=== PATIENT | female | born 1945 | race Two or more races ===

== ENCOUNTER 2016-03-23 16:51 | Emergency (ER) | payer MEDICARE, OTHER ==
[~2016-03-23] VITALS: Ht 157.5 cm; Wt 56.7 kg
[~2016-03-23 16:51] MED LIST: LISI-275 PO; PANT40TA2 PO; PERCOT PO
[2016-03-23 18:49] LABS: Albumin 3.3 g/dL (3.4-5.0); Calcium 8.1 mg/dL (8.5-10.1); Magnesium 2.1 mg/dL (1.6-2.6); Potassium 3.9 mmol/L (3.5-5.1)
[2016-03-23 18:51] LABS: BUN/Creatinine Ratio 15.9
[2016-03-23 18:54] LABS: Bilirubin, Total 0.3 mg/dL (0.2-1.0); Total Protein 7.2 g/dL (6.4-8.2)
[2016-03-23 19:29] LABS: DEFINITIVE VIEW TRANSMISSION; Hematocrit 40.5 % (36.0-46.0); Hemoglobin 12.8 g/dL (12.2-16.2); Mean Corpuscular Hemoglobin 28.7 pg (28.0-32.0); Mean Corpuscular Hgb Conc. 31.8 g/dL (32.0-36.0); Mean Corpuscular Volume 90.4 fL (80.0-100.0); Mean Platelet Volume 6.8 fL (7.4-10.4); Platelet Count (auto) 385 10^3/uL (140-450); Red Cell Distribution Width 16.1 % (11.6-16.0); White Blood Cell 6.3 10^3/uL (4.4-10.8)
[2016-03-23 19:32] LABS: Metamyelocytes % 0; Myelocytes % 0; Promyelocytes % 0; Reactive Lymphocytes 0
[2016-03-23 23:32] LABS: Platelet Estimate Adequate; RBC Morphology Normal
[2016-03-24] MEDS ORDERED: HYDROcodone-ACET 5/325MG TAB PO ONE (03:15)
[2016-03-24 03:45] VITALS: BP 147/68
== END 2016-03-24 04:31 | disposition home or self-care (01) ==
LOC: EDUNIT# 16:51 → ER 16:59
DX: R41.82 Altered mental status, unspecified (principal); R45.1 Restlessness and agitation; F17.210 Nicotine dependence, cigarettes, uncomplicated; G30.9 Alzheimer's disease, unspecified; F02.80 Dementia in other diseases classified elsewhere, unspecified severity, without behavioral disturbance, psychotic disturbance, mood disturbance, and anxiety; I10 Essential (primary) hypertension
CPT/HCPCS: 36415; 70450; 80053; 82962; 83735; 84484; 85007; 85027; 93005

== ENCOUNTER 2016-04-06 03:48 | Emergency (ER) | payer OTHER ==
[~2016-04-06] VITALS: Ht 162.6 cm; Wt 60.8 kg
[2016-04-06 04:56] LABS: Basophils # (auto) 0.1 uL; Basophils % (auto) 1.3 % (0.0-2.0); DEFINITIVE VIEW TRANSMISSION; Eosinophils # (auto) 0.7 uL; Eosinophils % (auto) 10.7 % (0.0-7.0); Hematocrit 41.9 % (36.0-46.0); Hemoglobin 13.1 g/dL (12.2-16.2); Lymphocytes # (auto) 2.1 uL; Lymphocytes % (auto) 30.4 % (10.0-50.0); Mean Corpuscular Hemoglobin 28.5 pg (28.0-32.0); Mean Corpuscular Hgb Conc. 31.2 g/dL (32.0-36.0); Mean Corpuscular Volume 91.4 fL (80.0-100.0); Monocytes # (auto) 0.6 uL; Monocytes % (auto) 9.2 % (0.0-12.0); Neutrophils # (auto) 3.3 uL; Neutrophils % (auto) 48.4 % (37.0-80.0); Platelet Count (auto) 423 10^3/uL (140-450); Red Cell Distribution Width 15.9 % (11.6-16.0); White Blood Cell 6.9 10^3/uL (4.4-10.8)
[2016-04-06 05:17] LABS: Albumin 3.6 g/dL (3.4-5.0); BUN/Creatinine Ratio 15.8; Calcium 8.2 mg/dL (8.5-10.1); Magnesium 2.2 mg/dL (1.6-2.6); Potassium 3.5 mmol/L (3.5-5.1)
[2016-04-06 05:20] LABS: Bilirubin, Total 0.3 mg/dL (0.2-1.0); Total Protein 7.8 g/dL (6.4-8.2)
[2016-04-06 06:10] VITALS: BP 120/60
[2016-04-06] MEDS ORDERED: KETOROLAC TROMETH 30 MG/ML 1ML VIAL IV ONE (07:30)
[2016-04-06] MEDS ORDERED: METOCLOPRAMIDE HCL 5MG/ml INJ 2ml VIAL IV ONE (07:30)
== END 2016-04-06 10:14 | disposition home or self-care (01) ==
LOC: ER 03:50
DX: R07.89 Other chest pain (principal); F03.90 Unspecified dementia, unspecified severity, without behavioral disturbance, psychotic disturbance, mood disturbance, and anxiety; F41.9 Anxiety disorder, unspecified; I10 Essential (primary) hypertension; G30.9 Alzheimer's disease, unspecified; G35 Multiple sclerosis; F17.210 Nicotine dependence, cigarettes, uncomplicated
CPT/HCPCS: 36415; 71010; 80053; 83735; 84443; 84484; 85025; 93005; 94761; 96374; 96375; 99285; J1885; J2765

== ENCOUNTER 2018-01-05 20:04 | Emergency (ER) | payer OTHER ==
[~2018-01-05] VITALS: Ht 160 cm; Wt 65.8 kg
[2018-01-05] MEDS ORDERED: LORazepam 0.5 MG TAB PO ONE (21:00)
[2018-01-05] MEDS ORDERED: KETOROLAC TROMETH 30 MG/ML 1ML VIAL IV ONE (21:00)
[2018-01-05 22:26] VITALS: BP 122/88
[2018-01-05 23:26] LABS: Basophils # (auto) 0.1 uL; Basophils % (auto) 0.5 % (0.0-2.0); Eosinophils # (auto) 0.3 uL; Eosinophils % (auto) 3.2 % (0.0-7.0); Hematocrit 49.9 % (36.0-46.0); Hemoglobin 16.1 g/dL (12.2-16.2); Lymphocytes # (auto) 1.3 uL; Lymphocytes % (auto) 11.9 % (10.0-50.0); Mean Corpuscular Hgb Conc. 32.2 g/dL (32.0-36.0); Mean Corpuscular Volume 93.1 fL (80.0-100.0); Monocytes # (auto) 0.4 uL; Monocytes % (auto) 4.1 % (0.0-12.0); Neutrophils # (auto) 8.7 uL; Neutrophils % (auto) 80.3 % (37.0-80.0); Platelet Count (auto) 323 10^3/uL (140-450); Red Blood Cells 5.36 10^6/uL (4.0-5.20); Red Cell Distribution Width 15.6 % (11.8-14.3); White Blood Cell 10.8 10^3/uL (4.4-10.8)
[2018-01-05 23:34] LABS: Urine Bacteria NONE SEEN /hpf (None Seen); Urine Blood Negative /uL (Negative); Urine Specific Gravity 1.015 (1.001-1.035); Urine WBC <1 /hpf (0 - 5)
[2018-01-05 23:45] LABS: Albumin 3.9 g/dL (3.4-5.0); Calcium 8.6 mg/dL (8.5-10.1); Potassium 4.6 mmol/L (3.5-5.1)
[2018-01-05 23:48] LABS: BUN/Creatinine Ratio 15.4; Bilirubin, Total 0.3 mg/dL (0.2-1.0); Total Protein 8.9 g/dL (6.4-8.2)
== END 2018-01-06 00:24 | disposition home or self-care (01) ==
LOC: EDBD 20:04 → ER 20:10
DX: S32.019A Unspecified fracture of first lumbar vertebra, initial encounter for closed fracture (principal); I10 Essential (primary) hypertension; G30.9 Alzheimer's disease, unspecified; F02.80 Dementia in other diseases classified elsewhere, unspecified severity, without behavioral disturbance, psychotic disturbance, mood disturbance, and anxiety; F41.9 Anxiety disorder, unspecified; F17.210 Nicotine dependence, cigarettes, uncomplicated; X58.XXXA Exposure to other specified factors, initial encounter; Y93.89 Activity, other specified; Y99.8 Other external cause status; Y92.89 Other specified places as the place of occurrence of the external cause
CPT/HCPCS: 36415; 72100; 80053; 81001; 85025; 96374; 99285; J1885

== ENCOUNTER 2018-03-16 18:34 | Emergency (ER) | payer OTHER ==
[2018-03-16 19:22] LABS: Basophils # (auto) 0.2 uL; Basophils % (auto) 2.2 % (0.0-2.0); Eosinophils # (auto) 0.7 uL; Eosinophils % (auto) 9.9 % (0.0-7.0); Hematocrit 45.5 % (36.0-46.0); Lymphocytes # (auto) 1.8 uL; Lymphocytes % (auto) 24.8 % (10.0-50.0); Mean Corpuscular Hemoglobin 30.1 pg (28.0-32.0); Mean Corpuscular Hgb Conc. 32.9 g/dL (32.0-36.0); Mean Corpuscular Volume 91.5 fL (80.0-100.0); Monocytes # (auto) 0.9 uL; Monocytes % (auto) 12.1 % (0.0-12.0); Neutrophils # (auto) 3.6 uL; Nucleated Red Blood Cells % 0.1 %; Platelet Count (auto) 316 10^3/uL (140-450); Red Blood Cells 4.98 10^6/uL (4.0-5.20); Red Cell Distribution Width 14.6 % (11.8-14.3); White Blood Cell 7.1 10^3/uL (4.4-10.8)
[2018-03-16 19:34] LABS: Albumin 3.7 g/dL (3.4-5.0); Anion Gap 6 (5-15); Blood Urea Nitrogen 17 mg/dL (7-18); Calcium 8.2 mg/dL (8.5-10.1); Carbon Dioxide 23 mmol/L (21-32); Chloride 113 mmol/L (98-107); Glucose 119 mg/dL (74-106); Potassium 4.3 mmol/L (3.5-5.1); Sodium 142 mmol/L (136-145)
[2018-03-16 19:41] LABS: Alanine Aminotransferase 27 U/L (13-56); Alkaline Phosphatase 151 U/L (45-117); Aspartate Aminotransferase 32 U/L (15-37); BUN/Creatinine Ratio 13.9; Bilirubin, Total 0.3 mg/dL (0.2-1.0); GFR African American 55 mL/min; GFR Non-African American 46 mL/min; Total Protein 8.5 g/dL (6.4-8.2)
[2018-03-16 23:48] VITALS: BP 139/62
[2018-03-20] MEDS ORDERED: SERT-138 PO (02:38)
[2018-03-20] MEDS ORDERED: BISA-4 PO (02:38)
[2018-03-20] MEDS ORDERED: LISI-646 PO (02:38)
[2018-03-20] MEDS ORDERED: ASPI81CH4 PO (02:38)
[2018-03-20] MEDS ORDERED: DONE10TA17 PO (02:38)
[2018-03-20] MEDS ORDERED: AMLO5TAB13 PO (02:38)
[2018-03-20] MEDS ORDERED: QUET50TA PO ×2 (02:38)
[2018-03-20] MEDS ORDERED: DIAZ2TAB PO (02:38)
== END 2018-03-16 22:24 | disposition home or self-care (01) ==
LOC: ER 18:34
DX: F41.8 Other specified anxiety disorders (principal); I11.0 Hypertensive heart disease with heart failure; I50.9 Heart failure, unspecified; J44.9 Chronic obstructive pulmonary disease, unspecified; Z87.891 Personal history of nicotine dependence
CPT/HCPCS: 36415; 71046; 80053; 84484; 85025; 93005

== ENCOUNTER 2019-01-16 11:13 | Inpatient (IN) | payer OTHER ==
[~2019-01-16] VITALS: Ht 167.6 cm; Wt 34.0 kg
[~2019-01-16 11:13] MED LIST changes: +AMLO5TAB15 PO; +ASPI81CH4 PO; +BISA-4 PO; +DIAZ2TAB PO; -LISI-275 PO; +LISI-646 PO; -PERCOT PO; +QUET50TA PO; +SERT50TA PO
[2019-01-16 12:14] LABS: Hematocrit 54.1 % (36.0-46.0); Red Cell Distribution Width 17.7 % (11.8-14.3)
[2019-01-16 12:16] LABS: Hemoglobin 17.3 g/dL (12.2-16.2); Mean Corpuscular Hemoglobin 31.6 pg (28.0-32.0); Mean Corpuscular Volume 98.7 fL (80.0-100.0); Platelet Count (auto) 89 10^3/uL (140-450); Red Blood Cells 5.48 10^6/uL (4.0-5.20)
[2019-01-16 12:25] LABS: Basophils % (manual) 0 (0.0-2.0); Blast Cells 0; Eosinophils % (manual) 0 (0-7); Metamyelocytes % 0; Myelocytes % 0; Promyelocytes % 0; Reactive Lymphocytes 0
[2019-01-16] MEDS ORDERED: SODIUM CHLORIDE 0.9% 1,000 ML IVB ONE (12:52)
[2019-01-16 12:54] LABS: Band Neutrophils % (manual) 18; Lymphocytes % (manual) 16 (10.0-50.0); Monocytes % (manual) 5 (0-12)
[2019-01-16] MEDS ORDERED: cefTRIAXone 1GM/50ML D5W 50 ML IV ONE (13:00)
[2019-01-16 13:46] LABS: INR 1.23 (0.9-1.15); Partial Thromboplastin Time 28.7 sec (23.64-32.05)
[2019-01-16 14:03] LABS: Alanine Aminotransferase 14 U/L (13-56); Albumin 2.6 g/dL (3.4-5.0); Anion Gap 9 (5-15); Aspartate Aminotransferase 33 U/L (15-37); BUN/Creatinine Ratio 15.2; Blood Alcohol < 3.0 mg/dL (0-5); Calcium 7.6 mg/dL (8.5-10.1); Carbon Dioxide 16 mmol/L (21-32); Chloride 142 mmol/L (98-107); GFR African American 6 mL/min; GFR Non-African American 5 mL/min; Glucose 109 mg/dL (74-106)
[2019-01-16 14:05] LABS: Blood Urea Nitrogen 134 mg/dL (7-18); Potassium 7.6 mmol/L (3.5-5.1); Sodium 167 mmol/L (136-145)
[2019-01-16 14:10] LABS: Alkaline Phosphatase 93 U/L (45-117); Bilirubin, Total 0.6 mg/dL (0.2-1.0); Total Protein 8.2 g/dL (6.4-8.2)
[2019-01-16] MEDS ORDERED: DEXTROSE (50%) 50ML SYRG IV ONE ×2 (14:30→19:30)
[2019-01-16] MEDS ORDERED: SODIUM BICARBONATE 8.4% INJ 50ML SYRINGE IV ONE (14:30)
[2019-01-16] MEDS ORDERED: InsuLIN REG 1unit/0.01ml Soln (100units/ml) IV ONE ×2 (14:30→19:30)
[2019-01-16] MEDS ORDERED: CALCIUM CHL 100MG/ML 500 MG in D5W 5% 100 ML IV ONE (14:30)
[2019-01-16] MEDS ORDERED: D5W 5% 1,000 ML IV SCH (14:45)
[2019-01-16] MEDS ORDERED: ALBUTEROL SULF 2.5 MG/0.5ML(0.5%) NEB SOLN NEB ONE ×2 (14:45→19:30)
[2019-01-16] MEDS ORDERED: NITROGLYCERIN 0.4 MG SL TAB SL PRN (14:45)
[2019-01-16 15:21] LABS: Lactic Acid w/Reflex 2.4 mmol/L (0.4-2.0)
[2019-01-16] MEDS ORDERED: SODIUM CHLORIDE 0.9% 2,000 ML IV ONE (16:15)
[2019-01-16] MEDS ORDERED: LIDOCAINE 1% (LOCAL ANESTH.) PF 5ml SDV ID ONE (16:30)
[2019-01-16] MEDS: InsuLIN REG 1unit/0.01ml Soln (100units/ml) SC SCH ×2 (17:00→22:00)
[2019-01-16] MEDS: ACCU-CHEK COMFORT CURVE STRIP VI SCH ×2 (17:26→22:00)
[2019-01-16] MEDS ORDERED: FREE WATER GT SCH (18:00)
[2019-01-16 18:33] LABS: Urine Bacteria NONE SEEN /hpf (None Seen); Urine Blood 2+ /uL (Negative); Urine Specific Gravity 1.016 (1.001-1.035); Urine WBC 20 /hpf (0 - 5)
[2019-01-16 18:34] LABS: BUN/Creatinine Ratio 16.7; Calcium 7.8 mg/dL (8.5-10.1); Magnesium 3.9 mg/dL (1.6-2.6); Potassium 5.3 mmol/L (3.5-5.1)
[2019-01-16] MEDS: SOD CHL 0.45% 1,000 ML IV SCH (21:42)
[2019-01-16] MEDS: FREE WATER GT SCH ×2 (21:43→22:00)
[2019-01-16] MEDS: SODIUM CHLOR 0.9% PF (SALINE LOCK) 10ML VIAL/SYR IV SCH (22:00)
[2019-01-17] MEDS: FREE WATER GT SCH ×6 (02:20→22:03)
[2019-01-17] MEDS: FAMOTIDINE (10MG/ML) 2ML VL IV SCH ×2 (02:20→09:35)
[2019-01-17 05:24] LABS: Basophils # (auto) 0.2 uL; Basophils % (auto) 2.7 % (0.0-2.0); Eosinophils # (auto) 0.1 uL; Eosinophils % (auto) 1.2 % (0.0-7.0); Hematocrit 44.7 % (36.0-46.0); Hemoglobin 14.9 g/dL (12.2-16.2); Lymphocytes # (auto) 0.6 uL; Mean Corpuscular Hemoglobin 32.2 pg (28.0-32.0); Mean Corpuscular Hgb Conc. 33.4 g/dL (32.0-36.0); Mean Corpuscular Volume 96.2 fL (80.0-100.0); Monocytes # (auto) 0.7 uL; Neutrophils # (auto) 7.4 uL; Neutrophils % (auto) 81.1 % (37.0-80.0); Nucleated Red Blood Cells % 0.3 %; Platelet Count (auto) 66 10^3/uL (140-450); Red Blood Cells 4.64 10^6/uL (4.0-5.20); Red Cell Distribution Width 16.8 % (11.8-14.3); White Blood Cell 9.2 10^3/uL (4.4-10.8)
[2019-01-17] MEDS: SOD CHL 0.45% 1,000 ML IV SCH (05:30)
[2019-01-17 05:45] LABS: Calcium 6.9 mg/dL (8.5-10.1); Potassium 5.3 mmol/L (3.5-5.1)
[2019-01-17 05:49] LABS: BUN/Creatinine Ratio 18.9
[2019-01-17] MEDS: InsuLIN REG 1unit/0.01ml Soln (100units/ml) SC SCH ×4 (07:00→22:00)
[2019-01-17] MEDS: ACCU-CHEK COMFORT CURVE STRIP VI SCH ×4 (07:27→22:03)
[2019-01-17] MEDS: SODIUM CHLOR 0.9% PF (SALINE LOCK) 10ML VIAL/SYR IV SCH ×2 (09:35→21:59)
[2019-01-17] MEDS ORDERED: DEXTROSE (50%) 50ML SYRG IV ONE (12:15)
[2019-01-17] MEDS: D5W/SOD CHL 0.45% 1,000 ML IV SCH (15:34)
[2019-01-17] MEDS ORDERED: LORazepam 2MG/ML-1ML VIAL IV ONE (17:45)
[2019-01-17] MEDS: SODIUM BICARBONATE 650 MG TAB PO SCH (21:59)
[2019-01-17] MEDS: ACETAMINOPHEN 650 mg PER 20 mL UD GT PRN (22:02)
[2019-01-18] MEDS: D5W/SOD CHL 0.45% 1,000 ML IV SCH ×3 (01:30→20:49)
[2019-01-18] MEDS: FREE WATER GT SCH ×6 (01:31→21:41)
[2019-01-18] MEDS ORDERED: LORazepam 2MG/ML-1ML VIAL IV ONE ×2 (05:45→19:45)
[2019-01-18 06:58] LABS: Basophils # (auto) 0 uL; Basophils % (auto) 0.5 % (0.0-2.0); Hemoglobin 13.1 g/dL (12.2-16.2); Lymphocytes # (auto) 1.4 uL; Lymphocytes % (auto) 15.8 % (10.0-50.0); Monocytes # (auto) 1.1 uL; Monocytes % (auto) 12.2 % (0.0-12.0); White Blood Cell 9.1 10^3/uL (4.4-10.8)
[2019-01-18 07:00] LABS: Eosinophils # (auto) 0.4 uL; Hematocrit 40.4 % (36.0-46.0); Mean Corpuscular Hemoglobin 32.4 pg (28.0-32.0); Mean Corpuscular Hgb Conc. 32.5 g/dL (32.0-36.0); Mean Corpuscular Volume 99.7 fL (80.0-100.0); Neutrophils # (auto) 6.1 uL; Neutrophils % (auto) 67.5 % (37.0-80.0); Nucleated Red Blood Cells % 0.2 %; Platelet Count (auto) 50 10^3/uL (140-450); Red Blood Cells 4.05 10^6/uL (4.0-5.20); Red Cell Distribution Width 16.9 % (11.8-14.3)
[2019-01-18] MEDS: InsuLIN REG 1unit/0.01ml Soln (100units/ml) SC SCH ×4 (07:00→21:34)
[2019-01-18] MEDS: ACCU-CHEK COMFORT CURVE STRIP VI SCH ×4 (07:05→21:34)
[2019-01-18 07:17] LABS: BUN/Creatinine Ratio 21.9; Calcium 6.3 mg/dL (8.5-10.1); Potassium 4.1 mmol/L (3.5-5.1)
--- NOTE | 2019-01-18 09:30 | NUR ---
WOUND CARE NOTE: ADDED PATIENT TO SKIN INTEGRITY MONITORING D/T PATIENT'S LOW RACHEL SCORE OF 12. PATIENT IS ICU STATUS IN ER BED 5, AWAITING AVAILABLE BED IN THE ICU. PATIENT ADMITTED TO [facility] WITH DIAGNOSIS OF HYPERKALEMIA. SHE DEVELOPED ERYTHEMA, EDEMA, ECCHYMOSIS TO THE LEFT FOREARM, FROM A POSSIBLE IV INFILTRATION. PATIENT SHOULD ELEVATE LUE UP ONTO PILLOWS TO HELP WITH EDEMA CONTROL. BEDSIDE NURSE PHOTOGRAPHED WOUND FOR REFERENCE. NO OTHER SKIN INTEGRITY ISSUES NOTED. PATIENT WOULD BENEFIT FROM THE FOLLOWING: SKIN/WOUND CARE PLAN, FREQUENT TURN SCHEDULE Q 2 HOURS, PRN CONDITION PERMITS, WITH PRESSURE REDISTRIBUTION USING PILLOWS/WEDGES, BID APPLICATION WITH MOISTURE BARRIER CREAM, OPTIFOAM GENTLE SACRAL DRESSING PREVENTATIVE, ELEVATION OF LUE WITH PILLOWS AND CLOSE MONITORING OF ERYTHEMA, DIETARY CONSULT FOR LOW RACHEL, CONTINUED MONITORING BY WOUND CARE TEAM. Addendum: 01/18/19 at 1426 by Saige Moore RN Amended: Links added.
[2019-01-18] MEDS: SODIUM CHLOR 0.9% PF (SALINE LOCK) 10ML VIAL/SYR IV SCH ×2 (10:47→21:34)
[2019-01-18] MEDS: SODIUM BICARBONATE 650 MG TAB PO SCH ×2 (10:50→21:41)
[2019-01-18] MEDS: FAMOTIDINE (10MG/ML) 2ML VL IV SCH (10:50)
[2019-01-18] MEDS: LORazepam 2MG/ML-1ML VIAL IV PRN ×2 (15:24→23:26)
[2019-01-18] MEDS: DEXTROSE (50%) 50ML SYRG IV PRN ×2 (17:18→21:32)
[2019-01-19] MEDS: MORPHINE SULF INJ 2 MG/ML SYRINGE 1ML IV PRN ×2 (00:55→01:29)
[2019-01-19] MEDS: FREE WATER GT SCH ×6 (01:42→22:36)
[2019-01-19] MEDS: DEXTROSE (50%) 50ML SYRG IV PRN (05:41)
[2019-01-19] MEDS ORDERED: DEXTROSE 10% 1,000 ML IV ONE ×2 (06:00→14:49)
[2019-01-19] MEDS: D5W/SOD CHL 0.45% 1,000 ML IV SCH ×2 (06:07→15:13)
[2019-01-19] MEDS: ACCU-CHEK COMFORT CURVE STRIP VI SCH ×4 (07:20→22:37)
[2019-01-19] MEDS: InsuLIN REG 1unit/0.01ml Soln (100units/ml) SC SCH ×4 (07:20→22:00)
[2019-01-19] MEDS ORDERED: DEXTROSE 10% 500 ML IV ONE (07:25)
[2019-01-19 07:37] LABS: Basophils # (auto) 0.1 uL; Basophils % (auto) 0.8 % (0.0-2.0); Eosinophils # (auto) 0.4 uL; Eosinophils % (auto) 4.5 % (0.0-7.0); Hematocrit 42.8 % (36.0-46.0); Hemoglobin 14.4 g/dL (12.2-16.2); Lymphocytes # (auto) 2.3 uL; Lymphocytes % (auto) 27.4 % (10.0-50.0); Mean Corpuscular Hemoglobin 32.3 pg (28.0-32.0); Mean Corpuscular Hgb Conc. 33.6 g/dL (32.0-36.0); Mean Corpuscular Volume 96.3 fL (80.0-100.0); Monocytes % (auto) 12.4 % (0.0-12.0); Neutrophils # (auto) 4.6 uL; Neutrophils % (auto) 54.9 % (37.0-80.0); Nucleated Red Blood Cells % 0.4 %; Platelet Count (auto) 69 10^3/uL (140-450); Red Blood Cells 4.45 10^6/uL (4.0-5.20); Red Cell Distribution Width 16.4 % (11.8-14.3); White Blood Cell 8.3 10^3/uL (4.4-10.8)
[2019-01-19 08:00] LABS: Calcium 6.5 mg/dL (8.5-10.1); Potassium 4.4 mmol/L (3.5-5.1)
[2019-01-19 08:02] LABS: Lactic Acid w/Reflex 2.3 mmol/L (0.4-2.0)
[2019-01-19] MEDS: SODIUM CHLOR 0.9% PF (SALINE LOCK) 10ML VIAL/SYR IV SCH ×2 (09:45→22:36)
[2019-01-19] MEDS ORDERED: CATHFLO ACTIVASE (ALTEPLASE) 2 MG VIAL IV ONE (09:45)
[2019-01-19] MEDS: SODIUM BICARBONATE 650 MG TAB PO SCH ×2 (10:07→22:36)
[2019-01-19] MEDS: FAMOTIDINE (10MG/ML) 2ML VL IV SCH (10:08)
[2019-01-19] MEDS ORDERED: AZITHROMYCIN 500MG/ 250ML 250 ML IV ONE (11:15)
[2019-01-19] MEDS ORDERED: cefTRIAXone 1GM/50ML D5W 50 ML IV ONE (11:15)
[2019-01-19] MEDS: Jevity 1.2 Cal/Fiber 1 Liter GT SCH (12:00)
[2019-01-19] MEDS: LORazepam 2MG/ML-1ML VIAL IV PRN ×2 (12:15→21:00)
--- NOTE | 2019-01-19 13:47 | NUR ---
Nutrition Assessment/consult Notes please see attached link for complete assessment Est. Needs BW 56 [id number] kcal (25-30kcal/kgBW), 44-56 gms pro (0.8-1.0 gms/kgBW r/t elev RFT wounds). Will continue to monitor pertinent labs and reassess nutrient need prn Addendum: 01/19/19 at [address] Amended: Links added.
--- NOTE | 2019-01-19 17:10 | NUR ---
Admit to [facility] from [facility] admitted to [facility] via hospital bed on monitor technician, and portable 02. Patient connected to unit monitoring and oxygen, and weighed by bedscale. Patient oriented to CL FALCON, RN primary RN, unit, room, bed, and unit policies regarding patient care and visiting hours. Patient still confused, non verbal, moving around, not follow direction, pupil Right eye 2 mm Reac to light, left eye 3 mm reac to light. On Grullon's catheter, urine drain to bag, urine with yellow color and pink color, skin assessment done: possible IV infiltration at left forearm, bruises at right thigh, black color at sacrum area. NG tube at left Nares running tube feeding at 20 ml/hr, PICC line at right upper arm running D10 at 75 ml/hr. Plan of care discussed with Aiyana (daughter).
[2019-01-19 17:11] VITALS: BP 100/60
[2019-01-19 17:15] VITALS: BP 100/60
--- NOTE | 2019-01-19 18:10 | NUR ---
Ruth (daughter) POA for medical and financial for patient, Aiyana (daughter) told that they are thinking about Code status : DNR, will discuss again when Ruth at the bedside.
--- NOTE | 2019-01-19 18:50 | NUR ---
Aiyana (daughter) at the bedside. Patient able to rest a little bit then make moving, still keep HOB for prevent aspiration. Will continue to monitor and care.
[2019-01-19 20:00] VITALS: BP 101/73
--- NOTE | 2019-01-19 20:00 | NUR ---
SHIFT OPENING NOTE RECEIVED PATIENT LAYING IN BED WITH EYES CLOSED. DOES NOT OPEN EYES, TRACK OR RESPONDS TO QUESTIONS. NONVERBAL. OCCASIONALLY MOANS. ON 2L N/C POX 100% RECEIVING TUBE FEEDINGS VIA NG TUBE LEFT NARE INFUSING JEVITY AT 20 ML/H (GOAL IS 50 ML/). AGUIRRE CATH IN PLACE DRAINING YELLOW URINE WITH SEDIMENT TO GRAVITY. KEM PICC INFUSING D10 AT 75ML/H ONE TIME DOSE. DAUGHTER AT BEDSIDE EDUCATED ON PATIENTS STATUS AND POC. WILL CLOSELY MONITOR. PATIENT.
[2019-01-19] MEDS: ACETAMINOPHEN 650 mg PER 20 mL UD GT PRN (21:00)
[2019-01-20] VITALS: BP 138/112
--- NOTE | 2019-01-20 00:30 | NUR ---
MORNING HYGIENE CARE FULL BED BATH PERFORMED WITH CHG WIPES AND WARM SOAPY WASH CLOTHES. GOWN CHANGED. FULL LINEN CHANGED. PATIENT REPOSITIONED FOR COMFORT. TOLERATED IT WELL.
[2019-01-20] MEDS: FREE WATER GT SCH ×5 (02:00→21:46)
[2019-01-20] MEDS ORDERED: LORA-655 PO (02:21)
[2019-01-20] MEDS ORDERED: DIVA500T53 PO (02:21)
[2019-01-20] MEDS ORDERED: DONE10TA40 PO (02:21)
[2019-01-20 04:00] VITALS: BP 109/50
[2019-01-20] MEDS: D5W/SOD CHL 0.45% 1,000 ML IV SCH (04:38)
[2019-01-20 05:37] LABS: Hemoglobin 12.5 g/dL (12.2-16.2); Mean Corpuscular Hemoglobin 32.6 pg (28.0-32.0); Mean Corpuscular Hgb Conc. 33.7 g/dL (32.0-36.0); Mean Corpuscular Volume 96.6 fL (80.0-100.0); Platelet Count (auto) 66 10^3/uL (140-450); Red Blood Cells 3.83 10^6/uL (4.0-5.20); Red Cell Distribution Width 15.5 % (11.8-14.3); White Blood Cell 10.2 10^3/uL (4.4-10.8)
[2019-01-20 05:50] LABS: Basophils % (manual) 0 (0.0-2.0); Blast Cells 0; Metamyelocytes % 0; Myelocytes % 0; Promyelocytes % 0; Reactive Lymphocytes 0
[2019-01-20 05:52] LABS: BUN/Creatinine Ratio 15.6; Potassium 3.6 mmol/L (3.5-5.1)
[2019-01-20] MEDS: ACCU-CHEK COMFORT CURVE STRIP VI SCH ×4 (06:07→21:48)
[2019-01-20] MEDS: InsuLIN REG 1unit/0.01ml Soln (100units/ml) SC SCH ×4 (06:07→21:48)
[2019-01-20 06:37] LABS: Band Neutrophils % (manual) 5; Eosinophils % (manual) 3 (0-7); Lymphocytes % (manual) 17 (10.0-50.0); Monocytes % (manual) 12 (0-12)
--- NOTE | 2019-01-20 07:50 | NUR ---
Opening Shift Note Assumed care of patient, patient sleeping, woke up by touching her arm but only moaning, not open her eyes, moving all extremities and not follow direction. No S/S of distress/SOB or pain, will continue to monitor for changes Q1hr and PRN.
[2019-01-20 08:00] VITALS: BP 114/81
--- NOTE | 2019-01-20 08:10 | NUR ---
Dr. Santacruz at the bedside, seen patient at this time, received new orders, will carry out.
--- NOTE | 2019-01-20 09:10 | NUR ---
Re position, keep high carrion position, NG tube checking no content noted, free water given as order. Increased TF to 40 ml/hr, will continue to monitor and care.
[2019-01-20] MEDS: cefTRIAXone 1GM/50ML D5W 50 ML IV SCH (09:18)
[2019-01-20] MEDS: SODIUM CHLOR 0.9% PF (SALINE LOCK) 10ML VIAL/SYR IV SCH ×2 (09:19→21:46)
[2019-01-20] MEDS: FAMOTIDINE (10MG/ML) 2ML VL IV SCH (09:19)
[2019-01-20] MEDS: AZITHROMYCIN 500MG/ 250ML 250 ML IV SCH (09:20)
[2019-01-20] MEDS: SODIUM BICARBONATE 650 MG TAB PO SCH ×2 (09:20→21:47)
--- NOTE | 2019-01-20 10:29 | NUR ---
Received new orders, will carry out, D/C IV as order, decreased free water.
[2019-01-20] MEDS: LORazepam 2MG/ML-1ML VIAL IV PRN (10:44)
--- NOTE | 2019-01-20 10:50 | NUR ---
Dr. Epps at the bedside, plan of care discussed with patient's daughters. Received new orders, they made aware, will carry out.
--- NOTE | 2019-01-20 11:40 | NUR ---
Blood sugar 146, will continue to monitor sign of hypoglycemia, continue tube feeding.
[2019-01-20 12:00] VITALS: BP 108/73
[2019-01-20] MEDS ORDERED: QUEtiapine FUMARATE 100 MG TAB PO ONE (12:00)
[2019-01-20] MEDS ORDERED: HALOPERIDOL LACTATE 5 MG/ML INJ VIAL IM PRN (12:15)
--- NOTE | 2019-01-20 13:36 | NUR ---
Sent urine sample to Lab.
[2019-01-20 13:54] LABS: Urine Bacteria FEW /hpf (None Seen); Urine Blood 2+ /uL (Negative); Urine Hyaline Cast FEW /lpf (0 - 2); Urine Mucus FEW (None Seen); Urine Specific Gravity 1.006 (1.001-1.035); Urine WBC 49 /hpf (0 - 5)
--- NOTE | 2019-01-20 14:25 | NUR ---
Patient is more relax after Seroquel and Depakote given as order, will continue to monitor an care. Vital sign stable, still has fever.
--- NOTE | 2019-01-20 16:10 | NUR ---
Patient had bowel movement, perineal care provided, partial linen changed, reposition at this time as well. Will continue to monitor and care.
--- NOTE | 2019-01-20 18:00 | NUR ---
Patient tolerated tube feeding well, increased tube feeding to 50ml/hr at this time. will continue to monitor and care. No sign of hypoglycemia noted.
[2019-01-20 20:00] VITALS: BP 115/64
--- NOTE | 2019-01-20 20:00 | NUR ---
SHIFT OPENING NOTE RECEIVED PATIENT LAYING IN BED WITH EYES CLOSED. DOES NOT OPEN EYES, TRACK OR RESPONDS TO QUESTIONS. NONVERBAL. OCCASIONALLY MOANS. ON ROOM AIR WITH POX 100%. RECEIVING TUBE FEEDINGS VIA NG TUBE LEFT NARE INFUSING JEVITY AT 50 ML/H (GOAL IS 50 ML/H). AGUIRRE CATH IN PLACE DRAINING YELLOW, RED TINGED URINE WITH SEDIMENT TO GRAVITY. KEM PICC NOTED SALINE LOCKED. DAUGHTER EDUCATED ON PATIENTS STATUS AND POC. WILL CLOSELY MONITOR. PATIENT.
[2019-01-20] MEDS: QUEtiapine FUMARATE 100 MG TAB PO SCH (21:47)
[2019-01-20] MEDS: DONEPEZIL HYDROCHLORIDE 5 MG TAB PO SCH (21:47)
[2019-01-20] MEDS: ACETAMINOPHEN 650 mg PER 20 mL UD GT PRN (21:49)
--- NOTE | 2019-01-20 23:25 | NUR ---
HYGIENE CARE FULL BED BATH PERFORMED USING CHG WIPES AND WARM SOAPY WASH CLOTHES. AGUIRRE CARE DONE. GOWN CHANGED. PARTIAL LINEN CHANGE. PATIENT REPOSITIONED FOR COMFORT. TOLERATED IT WELL.
[2019-01-21] VITALS (7 sets, daily range): BP systolic 90–131; BP diastolic 51–71
[2019-01-21] MEDS: FREE WATER GT SCH ×4 (03:45→22:16)
[2019-01-21] MEDS: ACCU-CHEK COMFORT CURVE STRIP VI SCH ×4 (05:39→22:16)
[2019-01-21] MEDS: InsuLIN REG 1unit/0.01ml Soln (100units/ml) SC SCH ×4 (05:39→22:00)
[2019-01-21 05:45] LABS: Hematocrit 36.7 % (36.0-46.0); Hemoglobin 12.5 g/dL (12.2-16.2); Mean Corpuscular Hemoglobin 32.8 pg (28.0-32.0); Mean Corpuscular Volume 96.4 fL (80.0-100.0); Platelet Count (auto) 99 10^3/uL (140-450); Red Blood Cells 3.81 10^6/uL (4.0-5.20); Red Cell Distribution Width 15.4 % (11.8-14.3); White Blood Cell 10.3 10^3/uL (4.4-10.8)
[2019-01-21 06:10] LABS: BUN/Creatinine Ratio 17.6; Magnesium 1.8 mg/dL (1.6-2.6); Potassium 3.7 mmol/L (3.5-5.1)
[2019-01-21 06:52] LABS: Basophils % (manual) 0 (0.0-2.0); Blast Cells 0; Myelocytes % 0; Promyelocytes % 0; Reactive Lymphocytes 0
[2019-01-21 07:18] LABS: Band Neutrophils % (manual) 2; Eosinophils % (manual) 4 (0-7); Lymphocytes % (manual) 23 (10.0-50.0); Metamyelocytes % 2; Monocytes % (manual) 10 (0-12)
--- NOTE | 2019-01-21 07:39 | NUR ---
END OF SHIFT REPORT GIVEN AND CARE ENDORSED TO SOWMYA VALENTE.
--- NOTE | 2019-01-21 08:00 | NUR ---
SKIN AREAS OF CONCERNS NOTED TO BILATERAL HEELS. LEFT HEEL NOTED TO HAVE CLOSED BLISTER. RIGHT HEEL, PINK/ SLOW TO NIC. LEFT INNER THIGH NOTED TO HAVE A LINEAR SCAB/ PINKISH. AGUIRRE SECURED TO RIGHT LEG TO SECURE CATHETER. PICTURES TAKEN. W/C NOTIFIED. BILATERAL HEELS OFF LOADED WITH PILLOWS.
[2019-01-21] MEDS ORDERED: QUET100T38 PO (10:40)
[2019-01-21] MEDS ORDERED: DONE10TA17 PO (10:40)
[2019-01-21] MEDS ORDERED: QUET300T14 PO (10:40)
[2019-01-21] MEDS ORDERED: ACET-1156 PO (10:43)
[2019-01-21] MEDS ORDERED: IBUP100S11 PO (10:43)
[2019-01-21] MEDS: cefTRIAXone 1GM/50ML D5W 50 ML IV SCH (10:58)
[2019-01-21] MEDS: AZITHROMYCIN 500MG/ 250ML 250 ML IV SCH (10:58)
[2019-01-21] MEDS: FAMOTIDINE (10MG/ML) 2ML VL IV SCH (10:58)
[2019-01-21] MEDS: SODIUM BICARBONATE 650 MG TAB PO SCH ×2 (10:58→22:16)
[2019-01-21] MEDS: SODIUM CHLOR 0.9% PF (SALINE LOCK) 10ML VIAL/SYR IV SCH ×2 (10:58→22:16)
[2019-01-21] MEDS ORDERED: MAGNESIUM SULFATE 1GM/100ML 100 ML IV ONE (11:00)
--- NOTE | 2019-01-21 11:00 | NUR ---
AT BEDSIDE DR. LOZADA AT BEDSIDE. MD UPDATED ON PATIENTS STATUS. MD SPOKE TO DAUGHTER KIMI AT BEDSIDE, QUESTIONS AND CONCERNS ADDRESSED. SEE NEW ORDERS.
[2019-01-21] MEDS: QUEtiapine FUMARATE 100 MG TAB PO SCH ×2 (11:09→22:15)
--- NOTE | 2019-01-21 11:18 | NUR ---
Medication Depakote changed as previous order extended release and requiring crushing for ng administration. aware. Order changed.
[2019-01-21] MEDS ORDERED: VALPROIC ACID 250 MG/5 ML ORAL SOLN PO ONE (11:30)
--- NOTE | 2019-01-21 12:30 | NUR ---
DOWNGRADE ORDER CHARGE NURSE TO NOTIFY AIR ROUTE TRAFFIC CONTROLLER OF DOWNGRADE TO TELE. CHARGE NURSE AWARE PATIENT IS NONVERBAL AND HIGH RISK FOR ASPIRATION.
--- NOTE | 2019-01-21 13:20 | NUR ---
NUTRITION TUBE FEEDINGS WITH JEVITY AT 51ML/HR TOLERATED WELL. NO GASTRIC RESIDUAL. ASPIRATION PRECAUTIONS REMAINS IN PLACE. WILL CONTINUE TO MONITOR CLOSELY.
--- NOTE | 2019-01-21 14:55 | NUR ---
WOUND CARE NOTE: Wound care consult received for new findings. Patient seen with bedside RN, Mildred. Reviewed photos taken by nursing. Patient now with red, non blanching heels with blisters bilaterally consistent with stage2 pressure injuries. Right heel measures 1x2cm and left heel measures 1.5x1.5cm. Patient also with wound to left upper thigh that measures 5x1cm and is consistent with medical office representative related pressure injury due to north, stage 2. RECOMMENDATIONS: Nursing to off load bilateral heels with Meeta boots or pillows; Nursing cleanse left thigh wound with wound cleanser, pat dry, apply therahoney gel and cover with optifoam gentle dressing, change every other day and PRN; wound care team to follow. Addendum: 01/21/19 at 1744 by ISHAN MACHUCA RN Amended: Links added.
--- NOTE | 2019-01-21 17:34 | NUR ---
DR. MOONEY AT BEDSIDE HX OBTAINED BY FAMILY AT BEDSIDE.
--- NOTE | 2019-01-21 20:00 | NUR ---
Opening Shift Note Assumed care of patient, lying on bed with eyes closed, arousal with light pain, answered yeah and no sometimes, garbled speech. Breathing even but tachypneic, No S/S of distress/SOB or pain. Body temp 100.4F, cooling measures on. NGT to left nare with continuos feeding 50ml/ hr. Residual of 30ml noted. PICC line at right upper arm, CDI site, flushed ok, positive blood return. Grullon's cath hung to gravity with light jennifer urine and some pink tinged, catheter engraver picture in place, will make sure that the catheter is not pulled tight. Bed in low position, all alarms are audible, fall and safety precaution in place. No family at bedside at this time, will continue to monitor for changes Q1hr and PRN.
--- NOTE | 2019-01-21 22:00 | NUR ---
Fever Body temp 100.8F despite cooling measures, will administer Tylenol and continue monitor.
[2019-01-21] MEDS: DONEPEZIL HYDROCHLORIDE 5 MG TAB PO SCH (22:16)
[2019-01-21] MEDS: ACETAMINOPHEN 650 mg PER 20 mL UD GT PRN (22:17)
[2019-01-21] MEDS: VALPROIC ACID 250 MG/5 ML ORAL SOLN PO SCH (22:49)
--- NOTE | 2019-01-21 23:55 | NUR ---
Report given to Tele nurse; Evgeny VALENTE. Pt's belonging with Pt, will transfer the patient shortly.
--- NOTE | 2019-01-21 23:56 | NUR ---
Received patient from Chris. Patient in bed asleep awakened by turning and pain. No signs of pain or distress noted. NG tube attached to feeding. Grullon intact and free flowing. Side rails up x2. Bed locked in lowest position. Call light within reach.
[2019-01-22] MEDS: FREE WATER GT SCH ×4 (03:00→21:37)
--- NOTE | 2019-01-22 03:00 | NUR ---
Aspiration precaution in place with head elevated, 10ml of residual aspirated from PEG tube and replaced. 200ml of free water given, patient tolerated well.
[2019-01-22 05:30] VITALS: BP 93/60
[2019-01-22] MEDS: ACCU-CHEK COMFORT CURVE STRIP VI SCH ×4 (06:39→21:50)
[2019-01-22] MEDS: InsuLIN REG 1unit/0.01ml Soln (100units/ml) SC SCH ×4 (06:39→21:50)
[2019-01-22 07:06] LABS: Calcium 6.1 mg/dL (8.5-10.1); Potassium 3.2 mmol/L (3.5-5.1)
[2019-01-22 07:10] LABS: BUN/Creatinine Ratio 16.2
--- NOTE | 2019-01-22 07:41 | NUR ---
Endorsed care to day shift RN.
[2019-01-22] MEDS: cefTRIAXone 1GM/50ML D5W 50 ML IV SCH (08:48)
[2019-01-22 09:00] VITALS: BP 119/60
[2019-01-22] MEDS: SODIUM CHLOR 0.9% PF (SALINE LOCK) 10ML VIAL/SYR IV SCH ×2 (10:00→21:51)
[2019-01-22] MEDS: AZITHROMYCIN 500MG/ 250ML 250 ML IV SCH (10:49)
[2019-01-22] MEDS: SODIUM BICARBONATE 650 MG TAB PO SCH ×2 (10:50→21:49)
[2019-01-22] MEDS: FAMOTIDINE (10MG/ML) 2ML VL IV SCH (10:50)
[2019-01-22] MEDS: VALPROIC ACID 250 MG/5 ML ORAL SOLN PO SCH ×2 (10:50→21:49)
[2019-01-22] MEDS: QUEtiapine FUMARATE 100 MG TAB PO SCH ×2 (10:51→21:50)
--- NOTE | 2019-01-22 11:50 | NUR ---
Nutrition Consult and Follow-up Notes Wt.: 56.8 kg as of yesterday. Pt's asleep, no immediate family member at bedside except for RN during rounds earlier. Pt's no signs of distress noted earlier, currently on NPO with EN support of Jevity 1.2 Anthony @ 50 ml/hr providing 1440 kcal,67 gms pro and 968 ml free water, tolerates feeding well, no residuals noted this morning, per nursing. Pt with adequate EN support d/t high initiation rate delivery of concentrated formula aeb current EN infusion meets 86% to 103% of est caloric needs and 119% to 148% of est protein needs. Noted pt's for active Wound consult. Est. Needs BW 56 [id number] kcal (25-30kcal/kgBW), 45-56 gms pro (0.8-1.0 gms/kgBW r/t elev RFT wounds). Will continue to monitor pertinent labs and reassess nutrient need prn Labs: Gluc 151 H, Na 146 H, K 3.2 L, Cl 116 H, BUN 21 H, Cr 1.30 H, Ca 6.1 L; Alb 2.6 L Skin: Casa scale 12, high risk, left heel pressure per track laying equipment operator. Pls refer to latest break and load operator's notes for further details re: tx plans. GI: Pt had 1 BM yesterday per track laying equipment operator. PES: Increased nutrient needs r/t acute/chronic medical condition aeb wound healing, mod hypoalbuminemia, NPO with EN support Altered nutrition related lab values r/t current/chronic medical condition aeb elev RFT hyperglycemia, mod hypoalb Will continue to monitor NPO status, EN tolerance, skin status, pertinent labs and weight trend. F/u in 2 to 3 days. Rec.: 1.) If still NPO with EN support, continue with Jevity 1.2 Anthony @ 50 ml/hr goal rate as tolerated. 2.) If Albumin continues trending down with improved renal labs, consider Prostat 1 pkt BID. 3.) Consider daily MVI with minerals and Asc acid 500 mgs BID. 4.) Advance to oral diet -per ST's diet texture recommendation) when medically appropriate. 5.) Refer pt to RD for further nutrition education and weight monitoring upon discharge. 6.) Continue current plan of care. Thank you for this consult.
[2019-01-22 13:00] VITALS: BP 111/85
--- NOTE | 2019-01-22 15:02 | NUR ---
Assessment Pt is 73 year old female with dementia. SW conducted assessment over the phone with pt's Daughter, Ruth, who is her emergency contact at [phone]. Pt lives with daughter who helps to dress, toilet, bath and feed her. Pt was ambulatory with a walker a month ago but her health has been declining a lot over the past month, she has kept in bed. Pt can be aggressive and combative and was d/c from assisted living home previously for behavioral issues. Pt receives income and does not have an AD on file. Pt's daughter plans to have her d/c back home with her. Pt's daughter can transport pt home, if she is mobile enough to get in to a w/c. Pt would benefit from for PT if able to take instructions. Addendum: 01/22/19 at 1510 by SUZANNA OSUNA Amended: Links added.
--- NOTE | 2019-01-22 15:58 | NUR ---
assessment Patient is a 73 year old female who is confused. Per patients daughter Ruth prior to admission patient lived home with her and family and functioned with their assistance. Per Ruth patients dementia has been getting worse the past month. Per Ruth patient has a caregiver that comes in 4 hours per day and Ruth cares for the patient the rest of the time. Patients PCP is Adonis MARTINEZ. Patient has a hospital bed, wheelchair, fww, and bedside commode for home use. Patients SS income is 1,800.00 per month. Per Ruth she prefers for patient to return home with her on discharge. Ruth has been thinking about possible hospice for patient. I informed Ruth patients post discharge needs to be determined after swallow eval and PT eval. I will discuss discharge needs with Dr Wang. Miranda verbalized understanding. Addendum: 01/22/19 at 1604 by Kayy HOLLINGSWORTH Amended: Links added.
--- NOTE | 2019-01-22 16:37 | NUR ---
ATTEMPTED SWALLOW EVALUATION. UNABLE TO WAKE PATIENT. FAMILY PRESENT.
[2019-01-22 17:00] VITALS: BP 127/70
--- NOTE | 2019-01-22 19:25 | NUR ---
Opening Shift Note Assumed care of patient, she is not awake or alert. No S/S of distress/SOB or pain. Grullon is hung below bladder and draining clear, yellow urine. Jevity is running through the ng tube at 50 mls/hr. Patient was repositioned to the left side with the HOB elevated for comfort. Instructed family on POC and to call for assist PRN. All questions and concerns answered, will continue to monitor for changes Q1hr and PRN.
--- NOTE | 2019-01-22 21:23 | NUR ---
Aspirated 10mL from ng tube and replaced. 200 mL free water given. HOB raised greater than 45 degrees. Addendum: 01/23/19 at 0600 by FLETCHER ROSE RN RN NG tube placement verified with auscultation and aspiration.
[2019-01-22] MEDS: DONEPEZIL HYDROCHLORIDE 5 MG TAB PO SCH (21:50)
[2019-01-22 21:51] VITALS: BP 138/76
--- NOTE | 2019-01-23 03:01 | NUR ---
Aspirated 10mL residual from ng tube and replaced it. 200 mL free water given. HOB raised greater than 45 degrees. Will continue to monitor.
[2019-01-23] MEDS: FREE WATER GT SCH ×4 (03:28→21:32)
[2019-01-23 05:22] VITALS: BP 112/64
[2019-01-23] MEDS: InsuLIN REG 1unit/0.01ml Soln (100units/ml) SC SCH ×4 (06:16→21:50)
[2019-01-23] MEDS: ACCU-CHEK COMFORT CURVE STRIP VI SCH ×4 (06:17→21:50)
[2019-01-23 06:44] LABS: BUN/Creatinine Ratio 18.4; Calcium 6.4 mg/dL (8.5-10.1); Magnesium 2.3 mg/dL (1.6-2.6); Potassium 3.4 mmol/L (3.5-5.1)
--- NOTE | 2019-01-23 07:45 | NUR ---
Opening Shift Note Assumed care of patient, sleeping in bed. No S/S of distress/SOB or pain. Instructed on POC and to call for assist PRN, bed in locked and lowest position and call light within reach. Will continue to monitor for changes Q1hr and PRN.
[2019-01-23 09:00] VITALS: BP 132/78
[2019-01-23] MEDS: SODIUM CHLOR 0.9% PF (SALINE LOCK) 10ML VIAL/SYR IV SCH ×2 (09:04→21:33)
[2019-01-23] MEDS: FAMOTIDINE (10MG/ML) 2ML VL IV SCH (09:04)
[2019-01-23] MEDS: cefTRIAXone 1GM/50ML D5W 50 ML IV SCH (09:04)
[2019-01-23] MEDS: QUEtiapine FUMARATE 100 MG TAB PO SCH ×2 (09:05→21:34)
[2019-01-23] MEDS: SODIUM BICARBONATE 650 MG TAB PO SCH (09:05)
[2019-01-23] MEDS: VALPROIC ACID 250 MG/5 ML ORAL SOLN PO SCH ×2 (09:05→21:33)
--- NOTE | 2019-01-23 10:10 | NUR ---
Dr. Epps bedside with patient
--- NOTE | 2019-01-23 11:04 | NUR ---
PT PERFORMED PROM ON R SIDE, L SIDE CAUSE PT PAIN. Addendum: 01/23/19 at 1105 by RAFAL MONET PTT Amended: Links added.
[2019-01-23] MEDS ORDERED: POTASSIUM CHL 20MEQ/100ML 100 ML IV ONE ×2 (11:30→12:04)
[2019-01-23] MEDS: AZITHROMYCIN 500MG/ 250ML 250 ML IV SCH (12:05)
[2019-01-23 13:00] VITALS: BP 117/61
--- NOTE | 2019-01-23 15:15 | NUR ---
Swallow Eval Swallow eval was unsuccessful again. Per nurse conducting swallow eval, patient was unable to respond and had no response to directions given.
[2019-01-23] MEDS: ACETAMINOPHEN 650 mg PER 20 mL UD GT PRN (16:04)
[2019-01-23 17:00] VITALS: BP 123/89
[2019-01-23] MEDS: DONEPEZIL HYDROCHLORIDE 5 MG TAB PO SCH (21:33)
[2019-01-23 22:17] VITALS: BP 121/59
[2019-01-24] MEDS: FREE WATER GT SCH ×2 (02:43→18:32)
--- NOTE | 2019-01-24 03:25 | NUR ---
Opening Shift Note Assumed care of patient, appears to be sleeping, resting in bed with eyes closed. No S/S of distress/SOB. Bed locked in lowest position, side rails up x2, and call light within reach, bed alarm on. Will continue to monitor for changes Q1hr and PRN.
[2019-01-24 05:10] VITALS: BP 142/68
[2019-01-24] MEDS: Jevity 1.2 Cal/Fiber 1 Liter GT SCH (06:00)
--- NOTE | 2019-01-24 06:00 | NUR ---
PICC Line Dressing Changes PICC line dressing change done with a sterile technique. Cleansed with chloraprep scrub/betadine. Stat lock, bio-patch, and occlusive dressing applied. Changed claves. Patient tolerated well.
[2019-01-24] MEDS: InsuLIN REG 1unit/0.01ml Soln (100units/ml) SC SCH ×4 (06:14→22:00)
[2019-01-24] MEDS: ACCU-CHEK COMFORT CURVE STRIP VI SCH ×4 (06:15→22:00)
--- NOTE | 2019-01-24 07:41 | NUR ---
OPENING NOTE Assumed care of patient from NOC RN, Carly Cuellar Patient aphasic but is arousable to touch. No S/S of distress/SOB or pain. NG tube to left nares, infusing Jevity @ 50mls/hr. Grullon catheter intact/patent and hung below bed. Bed in lowest, locked position with side rails up x2. Fall/aspiration precautions in place and call light within reach. Will continue to monitor for changes Q1hr and PRN.
[2019-01-24 09:00] VITALS: BP 125/69
--- NOTE | 2019-01-24 10:05 | NUR ---
NG TUBE Aspirated 13mL from ng tube and replaced. 200 mL free water given. HOB raised greater than 45 degrees, suction at bedside.
[2019-01-24] MEDS: cefTRIAXone 1GM/50ML D5W 50 ML IV SCH (11:11)
[2019-01-24] MEDS: SODIUM CHLOR 0.9% PF (SALINE LOCK) 10ML VIAL/SYR IV SCH ×2 (11:11→22:00)
[2019-01-24] MEDS: FAMOTIDINE (10MG/ML) 2ML VL IV SCH (11:11)
[2019-01-24] MEDS: AZITHROMYCIN 500MG/ 250ML 250 ML IV SCH (11:11)
[2019-01-24] MEDS: QUEtiapine FUMARATE 100 MG TAB PO SCH ×2 (11:12→22:00)
[2019-01-24] MEDS: VALPROIC ACID 250 MG/5 ML ORAL SOLN PO SCH ×2 (11:12→22:00)
--- NOTE | 2019-01-24 12:35 | NUR ---
FAMILY Patient's daughter, Ruth, at bedside.
[2019-01-24 13:00] VITALS: BP 127/51
[2019-01-24] MEDS ORDERED: PIPERACILLIN-TAZOB 3.375GM 100 ML IV ONE (13:45)
--- NOTE | 2019-01-24 14:50 | NUR ---
EEG COMPLETED AT BEDSIDE. AMBROSIO RIOS. Addendum: 01/24/19 at 1507 by KRISTEN OLIVAREZ THIS IS A FOLLOW-UP STUDY.
--- NOTE | 2019-01-24 15:30 | NUR ---
NG TUBE Aspirated 10.mL from ng tube and replaced. 200 mL free water given. HOB raised greater than 45 degrees, suction at bedside.
[2019-01-24 17:15] VITALS: BP 117/63
--- NOTE | 2019-01-24 19:30 | NUR ---
Opening Shift Note Assumed care of patient, awake and non verbal. Turning q2. No S/S of distress/SOB or pain. NG tube in place. and infusing per orders. Mittens on patient due to pulling at times. Instructed on POC and to call for assist PRN, will continue to monitor for changes Q1hr and PRN.
[2019-01-24] MEDS: PIPERACILLIN-TAZOB 3.375GM 100 ML IV SCH (19:39)
[2019-01-24 21:27] VITALS: BP 112/65
[2019-01-24] MEDS: DONEPEZIL HYDROCHLORIDE 5 MG TAB PO SCH (22:00)
[2019-01-25] MEDS: FREE WATER GT SCH ×3 (01:00→17:46)
[2019-01-25 05:02] VITALS: BP 92/60
[2019-01-25] MEDS: PIPERACILLIN-TAZOB 3.375GM 100 ML IV SCH ×4 (06:00→19:10)
[2019-01-25] MEDS: ACCU-CHEK COMFORT CURVE STRIP VI SCH ×4 (06:52→22:00)
[2019-01-25] MEDS: InsuLIN REG 1unit/0.01ml Soln (100units/ml) SC SCH ×4 (06:52→22:00)
[2019-01-25 06:54] LABS: Basophils # (auto) 0.1 uL; Basophils % (auto) 0.5 % (0.0-2.0); Eosinophils # (auto) 0.1 uL; Eosinophils % (auto) 0.9 % (0.0-7.0); Hematocrit 36.9 % (36.0-46.0); Hemoglobin 12.3 g/dL (12.2-16.2); Lymphocytes # (auto) 1.4 uL; Lymphocytes % (auto) 10.3 % (10.0-50.0); Mean Corpuscular Hemoglobin 31.8 pg (28.0-32.0); Mean Corpuscular Hgb Conc. 33.3 g/dL (32.0-36.0); Mean Corpuscular Volume 95.5 fL (80.0-100.0); Monocytes # (auto) 1.4 uL; Monocytes % (auto) 10.3 % (0.0-12.0); Neutrophils # (auto) 10.8 uL; Platelet Count (auto) 309 10^3/uL (140-450); Red Blood Cells 3.87 10^6/uL (4.0-5.20); Red Cell Distribution Width 14.8 % (11.8-14.3); White Blood Cell 13.9 10^3/uL (4.4-10.8)
[2019-01-25 07:14] LABS: BUN/Creatinine Ratio 25.9; Calcium 7.2 mg/dL (8.5-10.1); Potassium 3.5 mmol/L (3.5-5.1)
[2019-01-25 09:02] VITALS: BP 139/75
--- NOTE | 2019-01-25 09:30 | NUR ---
STOPPED FEEDING FOR POSSIBLE PEG TUBE PLACEMENT
[2019-01-25] MEDS: FAMOTIDINE (10MG/ML) 2ML VL IV SCH (10:53)
[2019-01-25] MEDS: SODIUM CHLOR 0.9% PF (SALINE LOCK) 10ML VIAL/SYR IV SCH ×2 (10:53→22:00)
[2019-01-25] MEDS: VALPROIC ACID 250 MG/5 ML ORAL SOLN PO SCH ×2 (12:24→22:49)
[2019-01-25] MEDS: QUEtiapine FUMARATE 100 MG TAB PO SCH ×2 (12:24→22:49)
[2019-01-25 13:00] VITALS: BP 132/90
--- NOTE | 2019-01-25 14:11 | NUR ---
Nutrition Follow-up Notes Wt.: 50.7kg as of yesterday. Noted 6.1 kg weight loss in last 2 days likely d/t ? fluid loss aeb negative I & Os fpr past few days. Pt's asleep,aphasic no immediate family member at bedside when rounded this morning. Pt's no signs of distress noted earlier, currently on NPO with EN support held this morning for possible PEG tube placement, per nursing. Pt's previously on Jevity 1.2 Anthony @ 50 ml/hr providing 1440 kcal,67 gms pro and 968 ml free water. Noted pt's for active GI consult. Est. Needs BW 56 [id number] kcal (25-30kcal/kgBW), 45-56 gms pro (0.8-1.0 gms/kgBW r/t elev RFT wounds). Will continue to monitor pertinent labs and reassess nutrient need prn Labs: Gluc 125 H, Na 147 H, Cl 115 H, BUN 30 H, Cr 1.16 H, Ca 7.2 L; Alb 2.6 L Skin: Casa scale 12, high risk, left heel pressure per loan coordinator. Pls refer to latest reformatory attendant's notes for further details re: tx plans. GI: Pt had 1 BM this morning per loan coordinator. PES: Increased nutrient needs r/t acute/chronic medical condition aeb wound healing, mod hypoalbuminemia, NPO with EN support Altered nutrition related lab values r/t current/chronic medical condition aeb elev RFT hyperglycemia, mod hypoalb Will continue to monitor NPO status, skin status, pertinent labs and weight trend. F/u in 2 to 3 days. Rec.: 1.) If still NPO, consider to resume EN support of Jevity 1.2 Anthony @ 50 ml/hr goal rate as tolerated when medically appropriate. 2.) If Albumin continues trending down with improved renal labs, consider Prostat 1 pkt BID. 3.) Consider daily MVI with minerals and Asc acid 500 mgs BID. 4.) Advance to oral diet -per ST's diet texture recommendation) when medically appropriate. 5.) Refer pt to RD for further nutrition education and weight monitoring upon discharge. 6.) Continue current plan of care.
[2019-01-25 16:44] VITALS: BP 118/69
--- NOTE | 2019-01-25 17:50 | NUR ---
Discharge planning per SS consult, patient has orders for a hospice consult. Placed a call to patient's daughter [phone], and she has not made a decision as to which hospice company ([facility]) she wants to perform evaluation. Referral packet with fax cover sheet is in the chart for referral in the event decision is made over the weekend.
[2019-01-25 22:00] VITALS: BP 111/67
[2019-01-25] MEDS: DONEPEZIL HYDROCHLORIDE 5 MG TAB PO SCH (22:49)
[2019-01-26] MEDS: FREE WATER GT SCH ×4 (01:00→21:00)
[2019-01-26 06:00] VITALS: BP 121/70
[2019-01-26] MEDS: PIPERACILLIN-TAZOB 3.375GM 100 ML IV SCH ×4 (06:13→18:17)
[2019-01-26] MEDS ORDERED: ACETAMINOPHEN 500 MG TAB PO PRN (06:30)
--- NOTE | 2019-01-26 06:30 | NUR ---
Called and spoke with hospitalist regarding patient looking very uncomfortable and restless. Received an order for tylenol PRN. No feedings at this time due to possible peg placement. Blood sugars WNL. IV PICC line to KEM patent in all ports. antibiotics infusing. Will continue to monitor
[2019-01-26 06:54] LABS: Basophils # (auto) 0.1 uL; Basophils % (auto) 0.9 % (0.0-2.0); Eosinophils # (auto) 0.2 uL; Eosinophils % (auto) 1.8 % (0.0-7.0); Hematocrit 34.3 % (36.0-46.0); Hemoglobin 11.4 g/dL (12.2-16.2); Lymphocytes # (auto) 1.2 uL; Lymphocytes % (auto) 13.4 % (10.0-50.0); Mean Corpuscular Hemoglobin 32.1 pg (28.0-32.0); Mean Corpuscular Hgb Conc. 33.2 g/dL (32.0-36.0); Mean Corpuscular Volume 96.7 fL (80.0-100.0); Monocytes # (auto) 0.8 uL; Monocytes % (auto) 8.8 % (0.0-12.0); Neutrophils # (auto) 6.6 uL; Neutrophils % (auto) 75.1 % (37.0-80.0); Platelet Count (auto) 356 10^3/uL (140-450); Red Blood Cells 3.55 10^6/uL (4.0-5.20); White Blood Cell 8.7 10^3/uL (4.4-10.8)
[2019-01-26] MEDS: InsuLIN REG 1unit/0.01ml Soln (100units/ml) SC SCH ×4 (07:00→22:00)
[2019-01-26] MEDS: ACCU-CHEK COMFORT CURVE STRIP VI SCH ×4 (07:04→22:00)
[2019-01-26 07:31] LABS: BUN/Creatinine Ratio 26.7; Calcium 7.4 mg/dL (8.5-10.1); Magnesium 2.2 mg/dL (1.6-2.6); Potassium 3.4 mmol/L (3.5-5.1)
[2019-01-26 09:00] VITALS: BP 133/97
[2019-01-26] MEDS: SODIUM CHLOR 0.9% PF (SALINE LOCK) 10ML VIAL/SYR IV SCH ×2 (10:34→22:00)
[2019-01-26] MEDS: FAMOTIDINE (10MG/ML) 2ML VL IV SCH (10:34)
[2019-01-26] MEDS: VALPROIC ACID 250 MG/5 ML ORAL SOLN PO SCH ×2 (12:09→23:00)
[2019-01-26] MEDS: QUEtiapine FUMARATE 100 MG TAB PO SCH ×2 (12:09→23:00)
[2019-01-26] MEDS ORDERED: POTASSIUM CHL 20MEQ/100ML 100 ML IV ONE (12:15)
[2019-01-26 13:00] VITALS: BP 134/78
[2019-01-26 16:37] VITALS: BP 131/68
[2019-01-26 22:00] VITALS: BP 116/61
[2019-01-26] MEDS: DONEPEZIL HYDROCHLORIDE 5 MG TAB PO SCH (23:00)
[2019-01-27] MEDS: FREE WATER GT SCH ×4 (03:00→21:00)
[2019-01-27 05:00] VITALS: BP 128/75
[2019-01-27] MEDS: PIPERACILLIN-TAZOB 3.375GM 100 ML IV SCH ×5 (06:00→23:49)
[2019-01-27] MEDS: InsuLIN REG 1unit/0.01ml Soln (100units/ml) SC SCH ×4 (07:00→22:00)
[2019-01-27] MEDS: ACCU-CHEK COMFORT CURVE STRIP VI SCH ×4 (07:03→22:00)
--- NOTE | 2019-01-27 07:30 | NUR ---
Opening Shift Note Assumed care of patient, asleep, abusable to touch, aphasic. No S/S of distress/SOB or pain. NG to left nares infusing at 50ml/hr. NG at 62cm and placement confirmed via auscultation. Bed in lowest and locked position with side rails up x2 and call light within reach. Instructed on POC and to call for assist PRN, will continue to monitor for changes Q1hr and PRN.
[2019-01-27 09:00] VITALS: BP 137/60
--- NOTE | 2019-01-27 09:30 | NUR ---
NG PAUSED RESIDUAL GREATER THAN 60MLS. PAUSED FEEDING AT THIS TIME.
--- NOTE | 2019-01-27 10:30 | NUR ---
RESIDUAL CHECK RE-ASSESSED RESIDUAL, GREATER THAN 60 MLS. MD TO BE NOTIFIED.
[2019-01-27 10:41] LABS: Calcium 7.1 mg/dL (8.5-10.1); Potassium 3.4 mmol/L (3.5-5.1)
[2019-01-27 10:43] LABS: BUN/Creatinine Ratio 28.2
--- NOTE | 2019-01-27 10:50 | NUR ---
SPOKE TO DR. LOZADA SPOKE TO DR. LOZADA. MD NOTIFIED THAT THE PATIENTS RESIDUAL IS GREATER THAN 60ML. MD AWARE. NEW ORDERS RECEIVED, READ BACK AND VERIFIED TO HOLD THE FEEDING AT THIS TIME DUE TO THE PATIENTS PROCEDURE ON 01/28.
[2019-01-27] MEDS: FAMOTIDINE (10MG/ML) 2ML VL IV SCH (11:21)
[2019-01-27] MEDS: QUEtiapine FUMARATE 100 MG TAB PO SCH ×2 (11:22→22:00)
[2019-01-27] MEDS: VALPROIC ACID 250 MG/5 ML ORAL SOLN PO SCH ×2 (11:22→22:00)
[2019-01-27] MEDS: SODIUM CHLOR 0.9% PF (SALINE LOCK) 10ML VIAL/SYR IV SCH ×2 (11:22→22:00)
[2019-01-27 13:00] VITALS: BP 120/55
--- NOTE | 2019-01-27 13:00 | NUR ---
RESIDUAL CHECK RE-ASSESSED RESIDUAL AT 30 MLS.
[2019-01-27 17:00] VITALS: BP 153/57
[2019-01-27 21:58] VITALS: BP 138/71
[2019-01-27] MEDS: DONEPEZIL HYDROCHLORIDE 5 MG TAB PO SCH (22:00)
[2019-01-28] MEDS: FREE WATER GT SCH ×4 (03:00→22:49)
[2019-01-28 05:00] VITALS: BP 148/70
[2019-01-28] MEDS: PIPERACILLIN-TAZOB 3.375GM 100 ML IV SCH ×3 (06:05→17:57)
[2019-01-28] MEDS: InsuLIN REG 1unit/0.01ml Soln (100units/ml) SC SCH ×4 (07:00→22:00)
[2019-01-28] MEDS: ACCU-CHEK COMFORT CURVE STRIP VI SCH ×4 (07:03→22:51)
--- NOTE | 2019-01-28 07:30 | NUR ---
Opening Shift Note Assumed care of patient, asleep, abusable to touch, aphasic. No S/S of distress/SOB or pain. NG to left nares. NG at 62cm and placement confirmed via auscultation. Bed in lowest and locked position with side rails up x2 and call light within reach. Instructed on POC and to call for assist PRN, will continue to monitor for changes Q1hr and PRN.
--- NOTE | 2019-01-28 08:10 | NUR ---
PAGED DR. LOZADA, AWAITING CALL BACK.
[2019-01-28] MEDS ORDERED: LIDOCAINE VISCOUS 2% 15ML UD ONE (08:17)
[2019-01-28] MEDS ORDERED: SODIUM CHLORIDE LOCK 10 ML ONE (08:17)
[2019-01-28] MEDS ORDERED: fentaNYL CITRATE 100 MCG/2 ML VL ONE (08:18)
[2019-01-28] MEDS ORDERED: MIDAZOLAM HCL 5 MG/ML-1ML VIAL ONE (08:18)
[2019-01-28] MEDS ORDERED: diphenhdrAMINE HCL 50 MG/1 ML VL ONE (08:18)
--- NOTE | 2019-01-28 08:18 | NUR ---
PAGED SS PAGED BRITTNEE WITH SOCIAL SERVICE REGARDING PATIENT REQUEST TO SPEAK WITH SS REGARDING PLACEMENT.
[2019-01-28] MEDS ORDERED: ceFAZolin 1GM/50ML 50 ML IV ONE (08:27)
[2019-01-28 09:00] VITALS: BP 133/59
--- NOTE | 2019-01-28 09:00 | NUR ---
SPOKE TO DR. NEVILLE SHARP NOTIFIED THAT THE PATIENTS GLUCOSE LEVEL IS 69 AND MD AWARE. NEW ORDERS RECEIVED, READ BACK AND VERIFIED TO BEGIN D5W WITH 1/2NS AT 70ML/HR.
[2019-01-28] MEDS: D5W/SOD CHL 0.45% 1,000 ML IV SCH ×2 (09:22→23:33)
[2019-01-28] MEDS: FAMOTIDINE (10MG/ML) 2ML VL IV SCH (09:22)
[2019-01-28] MEDS: SODIUM CHLOR 0.9% PF (SALINE LOCK) 10ML VIAL/SYR IV SCH ×2 (09:23→22:50)
[2019-01-28 09:54] LABS: BUN/Creatinine Ratio 23.8; Calcium 6.9 mg/dL (8.5-10.1); Potassium 3.6 mmol/L (3.5-5.1)
[2019-01-28] MEDS: VALPROIC ACID 250 MG/5 ML ORAL SOLN PO SCH ×2 (10:00→22:50)
[2019-01-28] MEDS: QUEtiapine FUMARATE 100 MG TAB PO SCH ×2 (10:00→22:50)
--- NOTE | 2019-01-28 11:32 | NUR ---
Discharge planning per SS consult, patient has orders for a hospice evaluation. Received a call from patient's daughter Ruth and she advised she has chosen [facility]. Referral packet faxed to [facility], evaluation is pending.
--- NOTE | 2019-01-28 11:36 | NUR ---
PAGED DR. LOZADA. PAGED DR. LOZADA REGARDING PATIENTS BRADYCARDIA. AWAITING CALL BACK.
--- NOTE | 2019-01-28 11:41 | NUR ---
SPOKE TO DR. NEVILLE LOAZDA NOTIFIED THAT THE PATIENTS HEART RATE IS BRADYCARDIC 48-51 BPM. MD AWARE AND ORDERS TO PRECEDE WITH THE PROCEDURE.
--- NOTE | 2019-01-28 12:36 | NUR ---
WOUND CARE NOTE: Wound care in to see patient for reevaluation of wounds and skin integrity monitoring. Patient is resting in bed in Rm. 219A. Patient's eyes are closed, respirations even and unlabored. pateint appears to be in no pain using Peterson Brewer Faces Pain Scale. her Casa score is 12. Skin assessment done with the assistance of patient's nurse, AMBROSIO Berman. Patient's blisters to bilateral heel are now, dry and resolving. Left heel dry blister measuring 2x1.5cm, red with pink blanchable surrounding skin. Right blister is thin light brown dry blister measuring 0.5x1cm, area is clean and dry, left open to air. Staff is keeping patient's heels offloaded on pillows. Patient's left upper thigh wound looks improving as well. Wound measuring 0.5x4cm. Staff thought it is from medical lab tech instructor (Grullon catheter) but patient's daughter at bedside reported that she's aware of it and it's from different brand of "diaper" she just purchased recently. She further explained that patient use "pull ups" before but she recently bought a brand that open to sides. Patient's skin/wound care education provided, verbalized understanding. Cleansed wounds,photograph taken for reference and changed the dressing as ordered. Sacral and back has no skin issue other than brown pigmentation to lower buttocks. Patient tolerated well, reposition for comfort facing her Rt side, redistributed pressure points with pillows. RECOMMENDATION: Nursing to continue wound dressing change per MD order, continuation of all wound care order prescribed by MD, continue with skin/wound plan of care, continue monitoring by wound care while patient is hospitalized. Addendum: 01/28/19 at 1728 by Kaelyn Gillespie RN Amended: Links added.
[2019-01-28] MEDS ORDERED: SIMETHICONE 40 MG/0.6 ML ORAL DROP ONE (12:39)
[2019-01-28 13:00] VITALS: BP_SYST 115; BP_SYST 143; BP_DIAS 43; BP_DIAS 65
--- NOTE | 2019-01-28 13:10 | NUR ---
SPOKE TO DR. LOZADA PER DR. LOZADA DO NOT ADMINISTER PO MEDICATIONS.
--- NOTE | 2019-01-28 13:43 | NUR ---
SPOKE TO DR. FELDMAN. PER DR. FELDMAN PATIENTS PROCEDURE IS CANCELLED TODAY AND TO BE CONTINUED ON 01/29/19 AFTER CARDIAC CLEARANCE. NEW ORDERS RECEIVED, READ BACK AND VERIFIED THAT THE PATIENT IS TO BE NPO AFTER MIDNIGHT AND TO BEGIN FEEDINGS AT THIS TIME UNTIL MIDNIGHT.
--- NOTE | 2019-01-28 14:21 | NUR ---
RECEIVED CALL BACK FROM DR. LOZADA. DR. LOZADA NOTIFIED THAT THE PROCEDURE IS HELD AT THIS TIME AND THAT DR. FELDMAN WANTS A CARDIAC CLEARANCE PRIOR TO THE PROCEDURE. MD AWARE AND NEW ORDERS RECEIVED, READ BACK AND VERIFIED FOR CARDIOLOGY CONSULT REGARDING CARDIAC CLEARANCE. PER MD, CONTINUE THE D5W 1/2NS AT 70 ML.
--- NOTE | 2019-01-28 14:58 | NUR ---
Nutrition Follow-up Notes Wt.: ?37.6 kg based on bed scale as of yesterday. Pt's asleep, aphasic no immediate family member at bedside during rounds this morning. Pt's no signs of distress noted earlier, currently on NPO with EN support temporarily held this morning d/t high residuals (60 ml) and noted for possible PEG tube placement. Pt's previously on Jevity 1.2 Anthony @ 50 ml/hr providing 1440 kcal,67 gms pro and 968 ml free water. Noted pt's for active GI and Cardiology consults. Est. Needs BW 56 [id number] kcal (25-30kcal/kgBW), 45-56 gms pro (0.8-1.0 gms/kgBW r/t elev RFT wounds). Will continue to monitor pertinent labs and reassess nutrient need prn Labs: Gluc 57 L, Na 155 H, Cl 122 H, BUN 25 H, Cr 1.05 H, Ca 6.9 L; Alb 2.6 L Skin: Casa scale 13, high risk, left heel pressure per supervisor machine setter. Pls refer to latest music adapter's notes for further details re: tx plans. GI: Pt had 1 BM yesterday per supervisor machine setter. PES: Increased nutrient needs r/t acute/chronic medical condition aeb wound healing, mod hypoalbuminemia, NPO with EN support Altered nutrition related lab values r/t current/chronic medical condition aeb elev RFT hyperglycemia, mod hypoalb Will continue to monitor NPO status, skin status, pertinent labs and weight trend. F/u in 2 to 3 days. Rec.: 1.) If still NPO, consider to resume EN support of Jevity 1.2 Anthony @ 50 ml/hr goal rate as tolerated when medically appropriate. 2.) If Albumin continues trending down with improved renal labs, consider Prostat 1 pkt BID. 3.) Consider daily MVI with minerals and Asc acid 500 mgs BID. 4.) Consider to recheck and record pt's actual BW in [facility] based on bed scale. 5.) Refer pt to RD for further nutrition education and weight monitoring upon discharge. 6.) Continue current plan of care.
--- NOTE | 2019-01-28 15:00 | NUR ---
FEEDING BEGAN NG AT 62CM AND PLACEMENT VERIFIED VIA AUSCULTATION. JEVITY BEGAN AT 30ML AND WILL INCREASE REGARDING PATIENTS TOLERANCE.
--- NOTE | 2019-01-28 15:00 | NUR ---
RESIDUAL CHECK RESIDUAL LESS THAN 10ML VIA NG TUBE.
[2019-01-28 17:00] VITALS: BP 133/80
--- NOTE | 2019-01-28 17:00 | NUR ---
RESIDUAL CHECK RESIDUAL LESS THAN 20ML VIA NG TUBE. INCREASED FEEDING TO 40ML/HR.
[2019-01-28] MEDS ORDERED: FUROSEMIDE 20 MG/2 ML VIAL IV ONE (18:30)
--- NOTE | 2019-01-28 18:49 | NUR ---
PAGED ALCIDES HENNING REGARDING LASIX ORDER. AWAITING CALL BACK.
--- NOTE | 2019-01-28 18:52 | NUR ---
RECEIVED CALL BACK FROM ALCIDES HENNING NOTIFIED ALCIDES HENNING THAT THERE IS A LASIX ORDER FOR THE PATIENT AND THE PATIENT IS BRADYCARDIC. PER MILADY THE LASIX IS OKAY TO BE GIVEN WITH THE PATIENTS HEART RATE.
--- NOTE | 2019-01-28 19:00 | NUR ---
PER ENVIRONMENTAL STUDIES PROFESSOR HENNING ORDERS LASIX GIVEN. PATIENTS HEART RATE 64 BPM AND BP 133/80 AT THE TIME OF ADMINISTRATION.
[2019-01-28 22:00] VITALS: BP 153/61
[2019-01-28] MEDS: DONEPEZIL HYDROCHLORIDE 5 MG TAB PO SCH (22:50)
[2019-01-29] MEDS: FREE WATER GT SCH ×4 (03:00→21:00)
[2019-01-29 05:00] VITALS: BP 130/80
[2019-01-29] MEDS: PIPERACILLIN-TAZOB 3.375GM 100 ML IV SCH ×4 (06:40→17:10)
[2019-01-29] MEDS: FUROSEMIDE 20 MG/2 ML VIAL IV SCH ×2 (06:40→17:10)
[2019-01-29] MEDS: InsuLIN REG 1unit/0.01ml Soln (100units/ml) SC SCH ×4 (07:00→22:00)
[2019-01-29 07:44] LABS: Basophils # (auto) 0.1 uL; Basophils % (auto) 1.9 % (0.0-2.0); Eosinophils # (auto) 0.3 uL; Eosinophils % (auto) 4.7 % (0.0-7.0); Hematocrit 37.3 % (36.0-46.0); Hemoglobin 12.2 g/dL (12.2-16.2); Lymphocytes # (auto) 2.6 uL; Lymphocytes % (auto) 43.4 % (10.0-50.0); Mean Corpuscular Hemoglobin 32.2 pg (28.0-32.0); Mean Corpuscular Hgb Conc. 32.8 g/dL (32.0-36.0); Mean Corpuscular Volume 98.2 fL (80.0-100.0); Monocytes # (auto) 0.6 uL; Monocytes % (auto) 10.7 % (0.0-12.0); Neutrophils # (auto) 2.4 uL; Neutrophils % (auto) 39.3 % (37.0-80.0); Nucleated Red Blood Cells % 0.1 %; Platelet Count (auto) 447 10^3/uL (140-450); Red Blood Cells 3.79 10^6/uL (4.0-5.20)
[2019-01-29 08:05] LABS: BUN/Creatinine Ratio 18.2; Calcium 7.3 mg/dL (8.5-10.1); Magnesium 2.1 mg/dL (1.6-2.6); Potassium 3.3 mmol/L (3.5-5.1)
[2019-01-29] MEDS: ACCU-CHEK COMFORT CURVE STRIP VI SCH ×4 (08:25→22:00)
[2019-01-29 09:00] VITALS: BP 127/84
[2019-01-29] MEDS: QUEtiapine FUMARATE 100 MG TAB PO SCH ×2 (09:38→22:00)
[2019-01-29] MEDS: SODIUM CHLOR 0.9% PF (SALINE LOCK) 10ML VIAL/SYR IV SCH ×2 (09:38→22:00)
[2019-01-29] MEDS: FAMOTIDINE (10MG/ML) 2ML VL IV SCH (09:38)
[2019-01-29] MEDS: VALPROIC ACID 250 MG/5 ML ORAL SOLN PO SCH ×2 (09:41→22:00)
[2019-01-29] MEDS ORDERED: POTASSIUM CHL 20MEQ/100ML 100 ML IV ONE (10:30)
[2019-01-29 11:21] LABS: INR 1.23 (0.9-1.15)
[2019-01-29] MEDS ORDERED: LIDOCAINE 1% (LOCAL ANESTH.) PF 5ml SDV ONE (12:52)
[2019-01-29] MEDS ORDERED: SUCCINYLCHOLINE CHLORIDE 20 MG/ML 10ML VIAL IV ONE (12:52)
[2019-01-29] MEDS ORDERED: ceFAZolin 1GM/50ML 50 ML IV ONE (12:55)
[2019-01-29] MEDS ORDERED: diphenhdrAMINE HCL 50 MG/1 ML VL ONE (12:57)
[2019-01-29] MEDS ORDERED: GLYCOPYRROLATE 0.2 MG/ML 1ML VIAL ONE (12:57)
[2019-01-29] MEDS ORDERED: MIDAZOLAM HCL 1MG/1ML-2 ML VIAL ONE (12:57)
[2019-01-29 13:00] VITALS: BP 132/77
[2019-01-29] MEDS ORDERED: ceFAZolin 1GM VL ONE (13:10)
[2019-01-29] MEDS ORDERED: SODIUM CHLORIDE LOCK 10 ML ONE (13:10)
[2019-01-29] MEDS ORDERED: ONDANSETRON HCL 4 MG/2 ML VIAL IV PRN (13:45)
[2019-01-29] MEDS ORDERED: SODIUM CHLORIDE 0.9% 1,000 ML IV SCH (15:30)
[2019-01-29] MEDS: D5W/SOD CHL 0.45% 1,000 ML IV SCH (15:57)
--- NOTE | 2019-01-29 16:57 | NUR ---
Discharge planning per SS consult, patient is accepted to [facility] [phone] on discharge. Placed a follow up call, spoke with Lizzie and was advised that they met with daughter and she signed EOB.
[2019-01-29 17:00] VITALS: BP 130/83
--- NOTE | 2019-01-29 20:00 | NUR ---
Opening Shift Note Assumed care of patient, awake and alert patient is aphasic alert and orientated times 1. No S/S of distress/SOB or pain. Instructed on POC and to call for assist PRN, will continue to monitor for changes Q1hr and PRN. be din low position and call light within reach.
[2019-01-29 22:00] VITALS: BP 112/70
[2019-01-29] MEDS: DONEPEZIL HYDROCHLORIDE 5 MG TAB PO SCH (22:00)
--- NOTE | 2019-01-29 22:38 | NUR ---
Spoke with hospitalist. Per hospitalist do not insert NG Tube and hold medications/ valporic acid. orders read back and verified by hospitalist.
--- NOTE | 2019-01-29 22:40 | NUR ---
patient refused placement of Optifoam and assessment of her back skin patient became agitated started to pull on north catheter. will attempt later.
[2019-01-30] MEDS: FREE WATER GT SCH ×4 (02:54→22:12)
[2019-01-30] MEDS: D5W/SOD CHL 0.45% 1,000 ML IV SCH ×2 (04:09→17:43)
[2019-01-30 05:00] VITALS: BP 128/70
[2019-01-30] MEDS: FUROSEMIDE 20 MG/2 ML VIAL IV SCH (06:07)
[2019-01-30] MEDS: PIPERACILLIN-TAZOB 3.375GM 100 ML IV SCH ×5 (06:07→23:28)
--- NOTE | 2019-01-30 06:07 | NUR ---
Preop wipes patient wiped down with preop wipes. patient refused turning and placement of Optifoam and wiping of her back with preop wipes. educated patient on benefits of Optifoam and preop wipes. patient refused, patient is alert and orientated times 1. Patient began kicking and hitting when attempting to turn patient again.
--- NOTE | 2019-01-30 06:31 | NUR ---
PREOP WIPES OPTIFOAM APPLIED TO PATIENT SACRUM PREVENTATIVE. PATIENT BACK AREA WIPED DOWN WITH PREOP WIPES
[2019-01-30] MEDS: InsuLIN REG 1unit/0.01ml Soln (100units/ml) SC SCH ×4 (06:32→22:00)
[2019-01-30] MEDS: ACCU-CHEK COMFORT CURVE STRIP VI SCH ×4 (06:32→22:12)
--- NOTE | 2019-01-30 06:41 | NUR ---
PATIENT ROUNDS PATIENT IS IN BED SLEEPING WITH BILATERAL CHEST RISE AND FALL RR 15. PATIENT SHOWS NO SIGNS OF DISTRESS SOB/ OR PAIN. BED IN LOW POSITION AND CALL LIGHT WITHIN REACH.
--- NOTE | 2019-01-30 06:41 | NUR ---
REPORT GIVEN TO THEO VALENTE
[2019-01-30 07:43] LABS: BUN/Creatinine Ratio 14.2; Calcium 8.1 mg/dL (8.5-10.1); Potassium 3.2 mmol/L (3.5-5.1)
[2019-01-30 08:50] VITALS: BP 119/74
[2019-01-30] MEDS: QUEtiapine FUMARATE 100 MG TAB PO SCH ×2 (10:00→22:00)
[2019-01-30] MEDS: FAMOTIDINE (10MG/ML) 2ML VL IV SCH (10:00)
[2019-01-30] MEDS: VALPROIC ACID 250 MG/5 ML ORAL SOLN PO SCH ×2 (10:00→22:00)
[2019-01-30] MEDS: SODIUM CHLOR 0.9% PF (SALINE LOCK) 10ML VIAL/SYR IV SCH ×2 (10:00→22:12)
[2019-01-30] MEDS ORDERED: POTASSIUM CHL 20MEQ/100ML 100 ML IV ONE (12:15)
[2019-01-30 12:22] VITALS: BP 111/45
[2019-01-30 17:00] VITALS: BP 162/97
--- NOTE | 2019-01-30 19:14 | NUR ---
Opening Shift Note Assumed care of patient, awake and alert. No S/S of distress/SOB or pain. Instructed on POC and to call for assist PRN, will continue to monitor for changes Q1hr and PRN.bed in low position and call light within reach
[2019-01-30 22:00] VITALS: BP 145/54
[2019-01-30] MEDS: DONEPEZIL HYDROCHLORIDE 5 MG TAB PO SCH (22:00)
[2019-01-31] MEDS: FREE WATER GT SCH ×4 (03:00→21:00)
--- NOTE | 2019-01-31 04:55 | NUR ---
dressing Attempted to perform picc dressing change on patient. patient became agitated. hitting my hands and began pulling. will attempt later.
[2019-01-31 05:00] VITALS: BP 113/68
--- NOTE | 2019-01-31 05:40 | NUR ---
patient dressing on abd is C/D/I. asymptomatic
--- NOTE | 2019-01-31 05:40 | NUR ---
patient wiped down with chg wipes
[2019-01-31] MEDS: PIPERACILLIN-TAZOB 3.375GM 100 ML IV SCH ×4 (06:11→23:30)
[2019-01-31 06:32] LABS: Hematocrit 41.9 % (36.0-46.0); Hemoglobin 13.6 g/dL (12.2-16.2); Mean Corpuscular Hemoglobin 32.1 pg (28.0-32.0); Mean Corpuscular Hgb Conc. 32.5 g/dL (32.0-36.0); Platelet Count (auto) 414 10^3/uL (140-450); Red Blood Cells 4.23 10^6/uL (4.0-5.20); Red Cell Distribution Width 15.4 % (11.8-14.3); White Blood Cell 7.9 10^3/uL (4.4-10.8)
[2019-01-31 06:43] LABS: Basophils % (manual) 0 (0.0-2.0); Blast Cells 0; Myelocytes % 0; Promyelocytes % 0; Reactive Lymphocytes 0
--- NOTE | 2019-01-31 06:50 | NUR ---
PATIENT HAD AND EPISODE OF BRADYCARDIA HR IN THE 30. PER WASTEWATER TREATMENT PLANT OPERATOR. PATIENT IS ASYMPTOMATIC. EKG PERFORMED SHOWING SINUS BRADYCARDIA HR 47. VS B/P 110/68, HR 48. RR 18, O2 SATURATION ROOM AIR 99. PATIENT COMPLAINS OF NO PAIN.
[2019-01-31 06:53] LABS: BUN/Creatinine Ratio 14.5; Calcium 8.3 mg/dL (8.5-10.1); Magnesium 2.2 mg/dL (1.6-2.6); Potassium 3.2 mmol/L (3.5-5.1)
--- NOTE | 2019-01-31 06:53 | NUR ---
SPOKE WITH HOSPITALIST. INFORMED HOSPITALIST. PATIENT HAD AND EPISODE OF BRADYCARDIA HR IN THE 30. PATIENT IS ASYMPTOMATIC. EKG PERFORMED SHOWING SINUS BRADYCARDIA HR 47. VS B/P 110/68, HR 48. RR 18, O2 SATURATION ROOM AIR 99. PATIENT COMPLAINS OF NO PAIN. PER HOSPITALIST CONTINUE TO MONITOR PATIENT NO NEW ORDERS RECEIVED.
[2019-01-31] MEDS: InsuLIN REG 1unit/0.01ml Soln (100units/ml) SC SCH ×4 (07:00→21:36)
[2019-01-31] MEDS: ACCU-CHEK COMFORT CURVE STRIP VI SCH ×4 (07:00→21:36)
[2019-01-31 07:25] LABS: Band Neutrophils % (manual) 2; Eosinophils % (manual) 3 (0-7); Lymphocytes % (manual) 33 (10.0-50.0); Metamyelocytes % 2; Monocytes % (manual) 8 (0-12)
--- NOTE | 2019-01-31 07:30 | NUR ---
Opening Shift Note Assumed care of patient, awake and alert. No S/S of distress/SOB or pain. Instructed on POC and to call for assist PRN, will continue to monitor for changes Q1hr and PRN. Patient is pleasantly confused. Mittens to hands.
--- NOTE | 2019-01-31 07:40 | NUR ---
report given to dayshift rn informed rn patient had an episode of bradycardia and no new orders receive but to monitor patient per hospitalist. informed rn patient piccline unable to draw blood but lines are able to flush. informed yarn spinnerminilab operator was called to draw blood.
--- NOTE | 2019-01-31 08:37 | NUR ---
EKG completed, placed in chart.
[2019-01-31 08:40] VITALS: BP 128/78
[2019-01-31] MEDS ORDERED: LIDOCAINE 1% (LOCAL ANESTH.) PF 5ml SDV ONE ×2 (09:04→09:52)
[2019-01-31] MEDS ORDERED: ETOMIDATE (2MG/ML) 20ML VIAL IV ONE (09:05)
[2019-01-31] MEDS ORDERED: ROCURONIUM 10MG/ML 10ML VIAL IV ONE (09:05)
--- NOTE | 2019-01-31 09:20 | NUR ---
Patient taken to pre-op via bed. Surgical checklist, consents in chart. Report given to AMBROSIO Thomas. Daughter, Ruth informed. She states she will come to the hospital.
[2019-01-31] MEDS ORDERED: POTASSIUM CHL 20MEQ/100ML 100 ML IV ONE (09:45)
[2019-01-31] MEDS: SODIUM CHLOR 0.9% PF (SALINE LOCK) 10ML VIAL/SYR IV SCH ×2 (10:00→20:46)
[2019-01-31] MEDS: QUEtiapine FUMARATE 100 MG TAB PO SCH ×2 (10:00→20:45)
[2019-01-31] MEDS: VALPROIC ACID 250 MG/5 ML ORAL SOLN PO SCH ×2 (10:00→20:46)
[2019-01-31] MEDS ORDERED: fentaNYL CITRATE 100 MCG/2 ML VL ONE (10:11)
[2019-01-31] MEDS ORDERED: SODIUM CHLORIDE LOCK 10 ML ONE (10:20)
[2019-01-31] MEDS ORDERED: ePHEDrine SULFATE 50 MG/ML AMP ONE (10:20)
[2019-01-31] MEDS ORDERED: NALOXONE HCL 0.4 MG/ML VIAL IV PRN (11:15)
[2019-01-31] MEDS ORDERED: HYDROmorphone HCL 2 MG/ML VL IV PRN (11:15)
[2019-01-31] MEDS ORDERED: ONDANSETRON HCL 4 MG/2 ML VIAL IV PRN (11:15)
--- NOTE | 2019-01-31 12:15 | NUR ---
Patient returned to room. Patient is awake, pleasantly confused. Dressing to abdomen dry and intact. Mittens to hands. Daughter at bedside. Call light in reach. Will continue to monitor.
[2019-01-31] MEDS: D5W/SOD CHL 0.45% 1,000 ML IV SCH ×2 (12:30→23:03)
[2019-01-31] MEDS: FAMOTIDINE (10MG/ML) 2ML VL IV SCH (12:31)
--- NOTE | 2019-01-31 12:42 | NUR ---
Dr. Epps in to see patient as hospitalist.
[2019-01-31 13:00] VITALS: BP 120/47
[2019-01-31] MEDS ORDERED: PANT40TA2 PO (13:25)
--- NOTE | 2019-01-31 14:21 | NUR ---
PATIENT REFUSED PT. Addendum: 01/31/19 at 1421 by RAFAL MONET PTT Amended: Links added.
--- NOTE | 2019-01-31 16:21 | NUR ---
Swallow eval completed. Therapist recommends pureed diet with thin liquids. Page placed to Dr. Epps.
--- NOTE | 2019-01-31 16:22 | NUR ---
SWALLOW EVALUATED. FAMILY PRESENT. PATIENT HAS UPPER DENTURES, NO LOWER TEETH. PATIENT ABLE TO TOLERATE PUREE DIET TEXTURE WITH THIN LIQUIDS WITH NO OVERT SIGNS OR SYMPTOMS OF ASPIRATION. NURSING NOTIFIED.
--- NOTE | 2019-01-31 16:23 | NUR ---
Return call from Dr. Epps. New order received for puree diet.
[2019-01-31 17:00] VITALS: BP 108/80
[2019-01-31] MEDS: ACETAMINOPHEN 650 mg PER 20 mL UD GT PRN (18:08)
--- NOTE | 2019-01-31 19:35 | NUR ---
Opening Shift Note Assumed care of patient, awake and alert. No S/S of distress/SOB or pain. Abdominal incision dry and intact, binder on. Family at bedside. Instructed on POC and to call for assist PRN, patient and family verbalized understanding, call light within reach, will continue to monitor for changes Q1hr and PRN. Addendum: 01/31/19 at 2221 by Yokasta Duffy RN RN Disregard notes. Wrong entry
--- NOTE | 2019-01-31 19:36 | NUR ---
Opening Shift Note Assumed care of patient, oriented to self only, restless at this time. No S/S of distress/SOB or pain. Daughter at bedside. Instructed on POC and to call for assist PRN, daughter verbalized understanding. Bed in lowest position, bed alarm on, will continue to monitor for changes Q1hr and PRN.
[2019-01-31] MEDS: DONEPEZIL HYDROCHLORIDE 5 MG TAB PO SCH (20:46)
[2019-01-31 22:00] VITALS: BP 98/47
[2019-02-01] MEDS: FREE WATER GT SCH ×4 (03:00→20:54)
[2019-02-01 05:00] VITALS: BP 100/58
[2019-02-01] MEDS: PIPERACILLIN-TAZOB 3.375GM 100 ML IV SCH ×3 (05:55→17:11)
[2019-02-01] MEDS: ACCU-CHEK COMFORT CURVE STRIP VI SCH ×4 (06:13→20:49)
[2019-02-01] MEDS: InsuLIN REG 1unit/0.01ml Soln (100units/ml) SC SCH ×4 (06:14→20:52)
--- NOTE | 2019-02-01 07:35 | NUR ---
Opening Shift Note Assumed care of patient, awake and laying in bed. No S/S of distress/SOB or pain. Instructed on POC and to call for assist PRN, call light is bedside and bed is in locked and lowest position. Will continue to monitor for changes Q1hr and PRN.
[2019-02-01 08:00] VITALS: BP 103/72
[2019-02-01 08:34] VITALS: BP 103/72
--- NOTE | 2019-02-01 09:20 | NUR ---
Dr. Maurer bedside with patient. Orders carried out as given.
[2019-02-01] MEDS ORDERED: SODIUM CHLORIDE 0.9% 1,000 ML IV SCH (09:30)
[2019-02-01] MEDS: QUEtiapine FUMARATE 100 MG TAB PO SCH ×2 (09:37→20:53)
[2019-02-01] MEDS: SODIUM CHLOR 0.9% PF (SALINE LOCK) 10ML VIAL/SYR IV SCH ×2 (09:37→20:54)
[2019-02-01] MEDS: VALPROIC ACID 250 MG/5 ML ORAL SOLN PO SCH ×2 (09:37→20:53)
[2019-02-01] MEDS: FAMOTIDINE (10MG/ML) 2ML VL IV SCH (09:37)
--- NOTE | 2019-02-01 10:05 | NUR ---
Dr. Pacheco bedside with patient. Dr. Pacheco to change D/C to tomorrow as patients Pegtube is not to be used for 48 hours after placement, (placed 12-12) and we are to monitor that patient tolerates feedings once started.
[2019-02-01 10:12] LABS: BUN/Creatinine Ratio 13.5; Calcium 8.1 mg/dL (8.5-10.1); Potassium 3.3 mmol/L (3.5-5.1)
--- NOTE | 2019-02-01 10:15 | NUR ---
Spoke to Shelby at [facility] to let her know patient will be D/C tomorrow instead of today. She will make necessary transport arrangements for tomorrow. Addendum: 02/01/19 at 1042 by KELTON MIRANDA RN RN Da number at [facility] is [phone]
--- NOTE | 2019-02-01 10:50 | NUR ---
Shelby from [facility] asked for patient to be D/C with a supply of pegtube nutritional supplement as they are unable to obtain any until Monday. I spoke to dietary services who will have 2 bags of nutritional supplement brought up before D/C tomorrow.
--- NOTE | 2019-02-01 12:34 | NUR ---
Nutrition Follow-up Notes Wt.: 33.9 kg based on bed scale as of today. Pt's asleep, aphasic no immediate family member at bedside during rounds this morning. Pt's no signs of distress noted earlier, currently on NPO with EN support scheduled to begin tomorrow morning to monitor tolerance per RN. Pt's previously on Jevity 1.2 Anthony @ 50 ml/hr providing 1440 kcal,67 gms pro and 968 ml free water. Est. Needs BW 56 [id number] kcal (25-30kcal/kgBW), 45-56 gms pro (0.8-1.0 gms/kgBW r/t elev RFT wounds). Will continue to monitor pertinent labs and reassess nutrient need prn Labs: Gluc 123 H, Pot 3.3 L, Cl 113 H, BUN 19 H, Cr 1.41 H, Ca 8.1 L; Alb 2.6 L Skin: Casa scale 12, high risk, left heel pressure per sole edge inker machine. Pls refer to latest pricing supervisor's notes for further details re: tx plans. GI: Pt has had no BM since 01/27 per sole edge inker machine. PES: Increased nutrient needs r/t acute/chronic medical condition aeb wound healing, mod hypoalbuminemia, NPO with EN support Altered nutrition related lab values r/t current/chronic medical condition aeb elev RFT hyperglycemia, mod hypoalb Will continue to monitor NPO status, skin status, pertinent labs and weight trend. F/u in 2 to 3 days. Rec.: 1.) If still NPO, consider to resume EN support of Jevity 1.2 Anthony @ 50 ml/hr goal rate as tolerated when medically appropriate. 2.) If Albumin continues trending down with improved renal labs, consider Prostat 1 pkt BID. 3.) Consider daily MVI with minerals and Asc acid 500 mgs BID. 4.) Consider to recheck and record pt's actual BW in [facility] based on bed scale. 5.) Refer pt to RD for further nutrition education and weight monitoring upon discharge. 6.) Continue current plan of care.
[2019-02-01 12:56] VITALS: BP 105/56
--- NOTE | 2019-02-01 14:41 | NUR ---
D/C Planning Followed up call to AMBROSIO Carroll regarding D/C orders. Per AMBROSIO Carroll doctor will discharge patient tomorrow Monday02/02/19. Followed up call to [facility] spoke to Lizzie. Informed [place] patient will be d/c tomorrow. General transport has been arrange for 14:00 if anything changes for RN to please follow up call to [facility].
[2019-02-01] MEDS: D5W/SOD CHL 0.45%/KCL 40MEQ 1,000 ML IV SCH (15:07)
[2019-02-01 16:58] VITALS: BP 116/56
--- NOTE | 2019-02-01 19:00 | NUR ---
RECEIVED PATIENT IN BED, FAMILY AT BEDSIDE. FAMILY AWARE OF PLAN FOR DISCHARGE IN AM IF TOLERATING TUBE FEEDING. CALL VASQUEZ WITH IN REACH. BED IN LOW POSITION. FLUIDS INFUSING TO KEM PICC LINE ORDERED.
[2019-02-01] MEDS: DONEPEZIL HYDROCHLORIDE 5 MG TAB PO SCH (20:53)
[2019-02-01 21:41] VITALS: BP 103/56
[2019-02-02] MEDS: PIPERACILLIN-TAZOB 3.375GM 100 ML IV SCH ×3 (00:18→11:49)
[2019-02-02] MEDS: FREE WATER GT SCH ×2 (03:00→09:06)
[2019-02-02] MEDS: D5W/SOD CHL 0.45%/KCL 40MEQ 1,000 ML IV SCH (03:50)
[2019-02-02 04:41] VITALS: BP 101/70
[2019-02-02] MEDS: InsuLIN REG 1unit/0.01ml Soln (100units/ml) SC SCH ×2 (06:30→11:30)
[2019-02-02] MEDS: ACCU-CHEK COMFORT CURVE STRIP VI SCH ×2 (06:30→11:54)
[2019-02-02] MEDS: Jevity 1.2 Cal/Fiber 1 Liter GT SCH (06:31)
--- NOTE | 2019-02-02 06:55 | NUR ---
0600 TUBE FEEDING JEVITY STARTED AT 20 ML/HR.
--- NOTE | 2019-02-02 07:30 | NUR ---
Opening Shift Note Assumed care of patient, who is oriented to self only. No S/S of distress/SOB or pain. Patient is on 20ml/hr feeding through G-tube. The surgical dressing is clean, dry and intact. Bed is in the lowest position with 2x side rails up for safety. Call light is within reach and fall precautions are in place with bed alarm on. Instructed on POC and to call for assist PRN, will continue to monitor for changes Q1hr and PRN.
[2019-02-02 08:00] VITALS: BP 107/57
[2019-02-02] MEDS: QUEtiapine FUMARATE 100 MG TAB PO SCH (09:01)
[2019-02-02] MEDS: VALPROIC ACID 250 MG/5 ML ORAL SOLN PO SCH (09:05)
[2019-02-02] MEDS: FAMOTIDINE (10MG/ML) 2ML VL IV SCH (09:06)
[2019-02-02] MEDS: SODIUM CHLOR 0.9% PF (SALINE LOCK) 10ML VIAL/SYR IV SCH (09:06)
[2019-02-02 12:00] VITALS: BP 131/95
[2019-02-02 13:11] VITALS: BP 131/95
--- NOTE | 2019-02-02 16:05 | NUR ---
Discharge instructions given as ordered. Encourage to follow up with PMD as instructed. All questions and concerns addressed. Patient verbalized understanding. Medication reconciliation form completed and copy given to patient. Home medications held in Pharmacy returned to patient, and needed vaccines given. PICC line removed with catheter intact, pressure dressing applied, north catheter removed. Telemetry unit returned to ICU. Patient discharged home with hospice. Patient has all personal belongings and is accompanied by family members. No distress noted at time of departure.
== END 2019-02-02 16:05 | disposition hospice, home (50) | DRG 853 ==
LOC: EDBD 11:13 → ER 11:13 → TELE 11:14 → DOU IN ICU 01-19 16:48 → TELE-CENTR 01-21 23:55
PROVIDERS: ADMIT Nurse Practitioner Acute Care; ATTEND Hospitalist
PROC: 02HV33Z Insertion of Infusion Device into Superior Vena Cava, Percutaneous Approach (ICD-10-PCS; principal; 2019-01-16)
PROC: 0DJ08ZZ Inspection of Upper Intestinal Tract, Via Natural or Artificial Opening Endoscopic (ICD-10-PCS; 2019-01-28)
PROC: 0DH60UZ Insertion of Feeding Device into Stomach, Open Approach (ICD-10-PCS; 2019-01-31)
DX: A41.9 Sepsis, unspecified organism (principal); G93.41 Metabolic encephalopathy; N17.0 Acute kidney failure with tubular necrosis; J18.9 Pneumonia, unspecified organism; E44.0 Moderate protein-calorie malnutrition; E87.0 Hyperosmolality and hypernatremia; E87.2 Acidosis; I13.0 Hypertensive heart and chronic kidney disease with heart failure and stage 1 through stage 4 chronic kidney disease, or unspecified chronic kidney disease; Z68.1 Body mass index [BMI] 19.9 or less, adult; J44.0 Chronic obstructive pulmonary disease with (acute) lower respiratory infection; E86.0 Dehydration; E87.5 Hyperkalemia; G30.1 Alzheimer's disease with late onset; D69.6 Thrombocytopenia, unspecified; N18.3 Chronic kidney disease, stage 3 (moderate); E16.2 Hypoglycemia, unspecified; E86.1 Hypovolemia; K29.70 Gastritis, unspecified, without bleeding; F02.80 Dementia in other diseases classified elsewhere, unspecified severity, without behavioral disturbance, psychotic disturbance, mood disturbance, and anxiety; F17.210 Nicotine dependence, cigarettes, uncomplicated; J44.9 Chronic obstructive pulmonary disease, unspecified; I50.9 Heart failure, unspecified; I67.2 Cerebral atherosclerosis; I70.0 Atherosclerosis of aorta; Z74.01 Bed confinement status; Z79.899 Other long term (current) drug therapy; Z86.73 Personal history of transient ischemic attack (TIA), and cerebral infarction without residual deficits; Z87.440 Personal history of urinary (tract) infections; Z93.1 Gastrostomy status; Z79.82 Long term (current) use of aspirin
CPT/HCPCS: 36415; 36569; 36600; 70450; 71045; 80048; 80053; 80320; 81001; 82805; 82962; 83605; 83735; 83880; 84484; 85007; 85025; 85027; 85610; 85730; 86850; 86900; 86901; 87040; 87081; 87086; 92610; 93005; 93306; 94644; 95819; 96361; 96365; 96375; 97110; 97163; 97530; G0378; J0330; J0690; J0696; J1815; J2250; J2543; J3480; J3490; J7042; J7060

== ENCOUNTER 2019-02-13 02:44 | Inpatient (IN) | payer OTHER ==
[~2019-02-13] VITALS: Ht 160 cm; Wt 71.6 kg
[~2019-02-13 02:44] MED LIST changes: +ACET-1156 PO; -AMLO5TAB15 PO; -DIAZ2TAB PO; +DIVA500T53 PO; +DONE10TA17 PO; +IBUP100S11 PO; -LISI-646 PO; +LORA-655 PO; +QUET100T38 PO; +QUET300T14 PO; -QUET50TA PO
[2019-02-13] MEDS ORDERED: LORazepam 2MG/ML-1ML VIAL IV ONE (03:30)
[2019-02-13] MEDS ORDERED: PROMETHAZINE HCL 25 MG/ML 1ML IV ONE (03:30)
[2019-02-13] MEDS ORDERED: SODIUM CHLORIDE 0.9% 1,000 ML IV ONE ×2 (05:09→10:15)
[2019-02-13] MEDS ORDERED: VANCOMYCIN PER PHARMACY 1,000 MG IV SCH (05:15)
[2019-02-13] MEDS ORDERED: VANCOMYCIN 1GM/250ML 250 ML IV ONE (05:30)
[2019-02-13 06:53] LABS: Chloride 102 mmol/L (98-107); Potassium 4.1 mmol/L (3.5-5.1); Sodium 135 mmol/L (136-145)
[2019-02-13 06:54] LABS: Lactic Acid w/Reflex 3.4 mmol/L (0.4-2.0)
[2019-02-13 06:58] LABS: Alanine Aminotransferase 7 U/L (13-56); Albumin 1.9 g/dL (3.4-5.0); Anion Gap 12 (5-15); Aspartate Aminotransferase 15 U/L (15-37); BUN/Creatinine Ratio 20.7; Blood Urea Nitrogen 24 mg/dL (7-18); Calcium 7.7 mg/dL (8.5-10.1); Carbon Dioxide 21 mmol/L (21-32); GFR African American 59 mL/min; GFR Non-African American 48 mL/min; Glucose 103 mg/dL (74-106)
[2019-02-13 07:02] LABS: Alkaline Phosphatase 117 U/L (45-117); Bilirubin, Total 0.6 mg/dL (0.2-1.0); Creatine Kinase IFCC 45 U/L (26-192); Total Protein 7.1 g/dL (6.4-8.2)
[2019-02-13 07:37] LABS: Basophils # (auto) 0.1 uL; Basophils % (auto) 0.4 % (0.0-2.0); Eosinophils # (auto) 0 uL; Hematocrit 32.7 % (36.0-46.0); Hemoglobin 10.9 g/dL (12.2-16.2); Lymphocytes # (auto) 0.8 uL; Lymphocytes % (auto) 5.5 % (10.0-50.0); Mean Corpuscular Hemoglobin 33.2 pg (28.0-32.0); Mean Corpuscular Hgb Conc. 33.4 g/dL (32.0-36.0); Mean Corpuscular Volume 99.3 fL (80.0-100.0); Monocytes # (auto) 1.6 uL; Monocytes % (auto) 11.4 % (0.0-12.0); Neutrophils # (auto) 11.7 uL; Neutrophils % (auto) 82.7 % (37.0-80.0); Platelet Count (auto) 132 10^3/uL (140-450); Red Blood Cells 3.29 10^6/uL (4.0-5.20); Red Cell Distribution Width 14.6 % (11.8-14.3); White Blood Cell 14.1 10^3/uL (4.4-10.8)
[2019-02-13 08:03] LABS: INR 1.11 (0.9-1.15); Partial Thromboplastin Time 30.9 sec (23.64-32.05)
[2019-02-13] MEDS ORDERED: SODIUM CHLORIDE 0.9% 1,000 ML IV SCH (08:11)
[2019-02-13] MEDS ORDERED: HYDROcodone-ACET 5/325MG TAB PO PRN (08:15)
[2019-02-13] MEDS ORDERED: MORPHINE SULF INJ 2 MG/ML SYRINGE 1ML IV PRN (08:15)
[2019-02-13] MEDS ORDERED: IBUPROFEN 400 MG TAB PO PRN (08:15)
[2019-02-13] MEDS ORDERED: DOCUSATE SOD 100 MG CAP PO PRN (08:15)
[2019-02-13] MEDS ORDERED: ONDANSETRON HCL 4 MG/2 ML VIAL IV PRN (08:15)
[2019-02-13] MEDS ORDERED: LORazepam 0.5 MG TAB PO PRN ×3 (08:15→12:30)
[2019-02-13] MEDS: PIPERACILLIN-TAZOB 3.375GM 100 ML IV SCH ×4 (09:26→23:59)
[2019-02-13] MEDS: SERTRALINE HCL 50 MG TAB PO SCH (10:00)
[2019-02-13] MEDS: ASPirin 81 mg TAB PO SCH (10:00)
[2019-02-13] MEDS ORDERED: PANTOPRAZOLE 40 MG TAB PO SCH (10:00)
[2019-02-13] MEDS ORDERED: FAMOTIDINE (10MG/ML) 2ML VL IV SCH (11:00)
[2019-02-13] MEDS: D5W/SOD CHLO 0.9% 1,000 ML IV SCH (11:08)
[2019-02-13] MEDS ORDERED: ACETAMINOPHEN 650 MG RECT SUPP PR ONE (11:15)
--- NOTE | 2019-02-13 11:20 | NUR ---
Telemetry admit from [facility] admitted to Telemetry unit after SBAR received. Patient oriented to Graciela Euceda, primary RN, unit, room, bed, and unit policies regarding patient care and visiting hours. Patient now on continuous telemetry monitoring, tele box #[id number] and telemetry reading on arrival to unit is SR. Patient placed on bedside oxygen, weighed by bedscale and encouraged to call if they need something. All questions and concerns addressed, patient unable to respond.Patient is aphasic. Family at bedside;verbalized understanding. sitter at bedside for safety.
[2019-02-13 11:40] VITALS: BP 122/61
[2019-02-13 13:00] VITALS: BP 122/61
[2019-02-13 16:28] VITALS: BP 127/66
--- NOTE | 2019-02-13 18:06 | NUR ---
MRSA swab collected and sent to lab via [email or web address] system.
--- NOTE | 2019-02-13 19:42 | NUR ---
end of shift note care endorsed to NOC RN. Sitter at bedside for safety.
--- NOTE | 2019-02-13 20:00 | NUR ---
Opening Shift Note Assumed care of patient, awake and alert. No S/S of distress/SOB or pain. Instructed on POC and to call for assist PRN, will continue to monitor for changes Q1hr and PRN.Sitter at bedside.
[2019-02-13 22:00] VITALS: BP 100/49
[2019-02-13] MEDS: DONEPEZIL HYDROCHLORIDE 5 MG TAB PO SCH (22:00)
[2019-02-13] MEDS: QUEtiapine FUMARATE 100 MG TAB PO SCH (22:00)
[2019-02-14] VITALS (7 sets, daily range): BP systolic 100–142; BP diastolic 44–59
[2019-02-14] MEDS: D5W/SOD CHLO 0.9% 1,000 ML IV SCH ×3 (00:35→16:40)
[2019-02-14 01:37] LABS: Urine Amorphous Crystal FEW /hpf (None Seen); Urine Bacteria FEW /hpf (None Seen); Urine Blood 1+ /uL (Negative); Urine Mucus FEW (None Seen); Urine Specific Gravity 1.016 (1.001-1.035); Urine WBC 11 /hpf (0 - 5)
[2019-02-14] MEDS: PIPERACILLIN-TAZOB 3.375GM 100 ML IV SCH ×4 (05:31→23:24)
[2019-02-14] MEDS: VANCOMYCIN 500 MG in D5W 5% 100 ML IV SCH (06:15)
--- NOTE | 2019-02-14 07:22 | NUR ---
Opening Shift Note Assumed care of patient, resting in bed with eyes closed. No S/S of distress/SOB or pain. Bed set in lowest locked position with side rails up x2 for safety. Will continue to monitor for changes Q1hr and PRN.
--- NOTE | 2019-02-14 07:33 | NUR ---
Report given to Chayito Mccabe, patient is resting no distress, sitter at bedside.
[2019-02-14] MEDS: QUEtiapine FUMARATE 100 MG TAB PO SCH ×2 (08:00→22:09)
[2019-02-14] MEDS: ASPirin 81 mg TAB PO SCH (10:00)
[2019-02-14] MEDS: SERTRALINE HCL 50 MG TAB PO SCH (10:00)
[2019-02-14] MEDS: ENOXAPARIN SOD 30 MG/0.3 ML SYRINGE SC SCH (10:58)
[2019-02-14] MEDS: FAMOTIDINE (10MG/ML) 2ML VL IV SCH (11:01)
--- NOTE | 2019-02-14 12:15 | NUR ---
WOUND CARE NOTE: Wound care in to see patient due to low Casa score of 12, putting patient to high risk for skin breakdown. Patient is 74 y/o female admitted for Sepsis and Dislodged peg Tube. Patient with history of Alzheimer, anxiety, COPD, Depression, Htn, TIA. Patient is resting in bed in Rm. 287A. She's awake but non-verbal. Patient appears to be in no pain using Peterson Brewer Faces Pain Scale. Skin assessment done with the assistance of patient's nurse, AMBROSIO Mccabe. No open wound noted other than brown pigmented sacral skin and thin brown scabs to patient's bilateral heel from old, dry, resolving blisters. Intact scar also noted to patient's left upper anteromedial thigh. Photograph of patient's sacral and heels scabs/scars are taken for reference. Patient is receiving BID/PRN cleaning and application of Barrier cream to sacral,buttocks, perineum as preventative. Repositioned patient for comfort facing her Lt. side, redistributed pressure points with pillows.Patient tolerated well. RECOMMENDATION: Nursing to continue with BID/PRN cleaning and application of Barrier cream to sacral,buttocks per MD order, frequent turning and repositioning schedule as condition permits,redistribute pressure points with pillows, continue monitoring by wound care while patient is hospitalized. Addendum: 02/14/19 at 1719 by Kaelyn Gillespie RN Amended: Links added.
--- NOTE | 2019-02-14 12:30 | NUR ---
MD at bedside for GI consult Dr. Harris, updated POC.
--- NOTE | 2019-02-14 15:30 | NUR ---
Dr. Woodward at bedside Assessed patient and updated POC.
--- NOTE | 2019-02-14 19:30 | NUR ---
Endorsed care to NOC RN.
--- NOTE | 2019-02-14 20:03 | NUR ---
Nasogastric tube insertion Patient and patient's family educated on need for NG tube. All questions addressed. NGT inserted per MD order. Placement verified by auscultation. Awaiting chest x-ray for confirmation.
[2019-02-14] MEDS: DONEPEZIL HYDROCHLORIDE 5 MG TAB PO SCH (22:10)
[2019-02-15] MEDS: D5W/SOD CHLO 0.9% 1,000 ML IV SCH ×3 (02:15→16:07)
[2019-02-15 05:16] VITALS: BP 114/57
[2019-02-15] MEDS: VANCOMYCIN 500 MG in D5W 5% 100 ML IV SCH (05:39)
[2019-02-15] MEDS: PIPERACILLIN-TAZOB 3.375GM 100 ML IV SCH ×3 (05:39→17:33)
--- NOTE | 2019-02-15 07:23 | NUR ---
Report given to Chayito Degroot, patient is resting no distress, sitter at bedside.
[2019-02-15] MEDS: FAMOTIDINE (10MG/ML) 2ML VL IV SCH (08:58)
[2019-02-15] MEDS: QUEtiapine FUMARATE 100 MG TAB PO SCH ×2 (08:58→22:29)
[2019-02-15] MEDS: SERTRALINE HCL 50 MG TAB PO SCH (08:58)
[2019-02-15] MEDS: ASPirin 81 mg TAB PO SCH (08:58)
[2019-02-15] MEDS: ENOXAPARIN SOD 30 MG/0.3 ML SYRINGE SC SCH (08:58)
[2019-02-15 09:00] VITALS: BP 112/37
--- NOTE | 2019-02-15 09:00 | NUR ---
Opening Shift Note Assumed care of patient, awake and alert. No S/S of distress/SOB or pain. A sitter at bedside , no any injuries noted. Instructed on POC and to call for assist PRN, will continue to monitor for changes Q1hr and PRN.
--- NOTE | 2019-02-15 12:04 | NUR ---
Nutrition Consult/Assessment Notes please see attached link for complete assessment Est. Needs based on BW (66 kg):9343-3751 kcal (23-25 kcal/kgIBW), 66-72 gms pro (1.0-1.1gms/kgBW r/t elev RFT, wounds hypoalb). Will continue to monitor pertinent labs and reassess nutrient need prn. Rec: EN support with Jevity 1.2 @ 50 ml/hr per MD approva Addendum: 02/15/19 at [address] Amended: Links added.
[2019-02-15 13:00] VITALS: BP 122/51
--- NOTE | 2019-02-15 13:24 | NUR ---
Midline Placement: Patient family member educated on need for midline placement. All risks and benefits explained and all questions and concerns addresses prior to procedure. 18g/10cm midline inserted via right basilic vein using Ultrasound. Sterile technique utilized. Blood return obtained from lumen and flushed easily with NS using proper technique. Midline secured with saline lock; biodisc and occlusive dressing applied. Primary RN notified. Midline lot #[id number]
--- NOTE | 2019-02-15 15:00 | NUR ---
Called nuclear meds stated that unable to do VQ scan today due to there is no gas.
[2019-02-15 15:56] LABS: Basophils # (auto) 0.1 uL; Basophils % (auto) 0.4 % (0.0-2.0); Eosinophils # (auto) 0.6 uL; Eosinophils % (auto) 4.8 % (0.0-7.0); Hematocrit 29.2 % (36.0-46.0); Lymphocytes # (auto) 1.5 uL; Lymphocytes % (auto) 11.8 % (10.0-50.0); Mean Corpuscular Hemoglobin 33.8 pg (28.0-32.0); Mean Corpuscular Hgb Conc. 34.1 g/dL (32.0-36.0); Mean Corpuscular Volume 98.9 fL (80.0-100.0); Monocytes # (auto) 1.2 uL; Monocytes % (auto) 9.4 % (0.0-12.0); Neutrophils # (auto) 9.2 uL; Neutrophils % (auto) 73.6 % (37.0-80.0); Platelet Count (auto) 143 10^3/uL (140-450); Red Blood Cells 2.95 10^6/uL (4.0-5.20); Red Cell Distribution Width 15.7 % (11.8-14.3); White Blood Cell 12.5 10^3/uL (4.4-10.8)
[2019-02-15 17:00] VITALS: BP 136/61
--- NOTE | 2019-02-15 17:15 | NUR ---
Grullon catheter reinsertion due to leaking. Patient educated on catheter and reason for reinsertion. All questions answered. Grullon catheter 16 Kenyan inserted with clean sterile technique. Patient tolerated well.
[2019-02-15] MEDS: Jevity 1.2 Cal/Fiber 1 Liter NG SCH (18:31)
--- NOTE | 2019-02-15 19:30 | NUR ---
Opening Shift Note Received report from Mikayla VALENTE. Assumed care of patient, awake and alert, aphasic. Sitter at bedside for safety. No S/S of distress/SOB or pain. Instructed on POC and to call for assist PRN. Fall precaution measures in place, will continue to monitor for changes Q1hr and PRN.
[2019-02-15 21:27] VITALS: BP 116/63
[2019-02-15] MEDS: DONEPEZIL HYDROCHLORIDE 5 MG TAB PO SCH (22:28)
[2019-02-15 22:43] LABS: Albumin 1.5 g/dL (3.4-5.0); BUN/Creatinine Ratio 13.1; Calcium 7.7 mg/dL (8.5-10.1); Potassium 3.5 mmol/L (3.5-5.1)
[2019-02-15 22:46] LABS: Bilirubin, Total 0.7 mg/dL (0.2-1.0); Total Protein 6.1 g/dL (6.4-8.2)
[2019-02-16] MEDS: PIPERACILLIN-TAZOB 3.375GM 100 ML IV SCH ×5 (00:15→23:06)
[2019-02-16] MEDS: VANCOMYCIN 500 MG in D5W 5% 100 ML IV SCH (05:26)
[2019-02-16 05:40] VITALS: BP 113/60
[2019-02-16 05:43] LABS: Basophils # (auto) 0 uL; Basophils % (auto) 0.4 % (0.0-2.0); Eosinophils # (auto) 0.3 uL; Eosinophils % (auto) 3.9 % (0.0-7.0); Hematocrit 30.7 % (36.0-46.0); Hemoglobin 10.3 g/dL (12.2-16.2); Lymphocytes # (auto) 1.6 uL; Lymphocytes % (auto) 23.8 % (10.0-50.0); Mean Corpuscular Hemoglobin 33.6 pg (28.0-32.0); Mean Corpuscular Hgb Conc. 33.6 g/dL (32.0-36.0); Monocytes # (auto) 0.6 uL; Monocytes % (auto) 8.4 % (0.0-12.0); Neutrophils # (auto) 4.2 uL; Neutrophils % (auto) 63.5 % (37.0-80.0); Platelet Count (auto) 155 10^3/uL (140-450); Red Blood Cells 3.07 10^6/uL (4.0-5.20); White Blood Cell 6.6 10^3/uL (4.4-10.8)
[2019-02-16 05:54] LABS: BUN/Creatinine Ratio 15.1; Calcium 7.7 mg/dL (8.5-10.1); Potassium 3.4 mmol/L (3.5-5.1)
[2019-02-16] MEDS: QUEtiapine FUMARATE 100 MG TAB PO SCH ×2 (08:23→22:05)
[2019-02-16 08:30] VITALS: BP 108/57
--- NOTE | 2019-02-16 09:00 | NUR ---
Opening Shift Note Assumed care of patient, awake and alert. No S/S of distress/SOB or pain. Instructed on POC and to call for assist PRN, will continue to monitor for changes Q1hr and PRN.
[2019-02-16] MEDS: FAMOTIDINE (10MG/ML) 2ML VL IV SCH (09:28)
[2019-02-16] MEDS: ENOXAPARIN SOD 30 MG/0.3 ML SYRINGE SC SCH (09:29)
[2019-02-16] MEDS: SERTRALINE HCL 50 MG TAB PO SCH (09:29)
[2019-02-16] MEDS: ASPirin 81 mg TAB PO SCH (09:29)
[2019-02-16] MEDS: D5W/SOD CHLO 0.9% 1,000 ML IV SCH (11:21)
[2019-02-16] MEDS ORDERED: POTASSIUM EFFERVESENT TAB 25 MEQ GT ONE (13:00)
[2019-02-16 13:02] VITALS: BP 93/54
[2019-02-16] MEDS: FLUCONAZOLE 100 MG TAB PO SCH (13:45)
[2019-02-16 17:31] VITALS: BP 100/59
[2019-02-16] MEDS: VANCOMYCIN 1GM/250ML 250 ML IV SCH (17:47)
--- NOTE | 2019-02-16 18:07 | NUR ---
T 99.1 Axiliary , cooling measure placed. Addendum: 02/16/19 at 1811 by LALI TROY RN AND TYLENOL 500 MG GIVEN
[2019-02-16] MEDS: ACETAMINOPHEN 325 MG TAB PO PRN (18:12)
--- NOTE | 2019-02-16 19:45 | NUR ---
OPENING: SEEN PT HOB, ALERT, WITH MINIMAL VERBAL RESPONSE. NG-TUBE ON LEFT NARES , INTACT PATENT WITH FEEDING TUBE FEEDING, INFUSING WELL.VERIFIED PROPER PLACEMENT BY AUSCULTATION.10 ML OF OUTPUT ASPIRATED. CONTINUE FEEDING. MIDLINE ACCESS ON RIGHT FOREARM PATENT, DRY AND INTACT. AGUIRRE DRAINING WELL BY GRAVITY, NO SIGNS OF DISTRESS NAD DISCOMFORT AT THIS TIME. CALL LIGHT WITHIN REACH AND BED ALARM ON AND IN LOW POSITION. SITTER AT BEDSIDE. WILL CONTINUE TO MONITOR.
[2019-02-16 20:00] VITALS: BP 121/55
[2019-02-16 22:03] VITALS: BP 121/55
[2019-02-16] MEDS: DONEPEZIL HYDROCHLORIDE 5 MG TAB PO SCH (22:06)
--- NOTE | 2019-02-17 00:30 | NUR ---
NG-TUBE FEEDIN ML OF RESIDUAL ASPIRATED, CONTINUE FEEDING. CHANGED POSITIONED AND HOB FOR ASPIRATION PRECAUTION.
--- NOTE | 2019-02-17 04:35 | NUR ---
NG-TUBE FEEDING: NO RESIDUAL ASPIRATED. TOLERATING FEEDING WELL. CONTINUE FEEDING. SPONGE BATH WAS PROVIDED AND LINEN CHANGED. CHANGED POSITION EVERY 2 HRS.CONTINUE CARE.
[2019-02-17 05:00] VITALS: BP 128/67
[2019-02-17] MEDS: PIPERACILLIN-TAZOB 3.375GM 100 ML IV SCH ×4 (05:20→23:30)
[2019-02-17 06:18] LABS: Albumin 1.4 g/dL (3.4-5.0); Calcium 7.6 mg/dL (8.5-10.1); Potassium 4.2 mmol/L (3.5-5.1)
[2019-02-17 06:23] LABS: BUN/Creatinine Ratio 16.5; Bilirubin, Total 0.4 mg/dL (0.2-1.0); Total Protein 6.3 g/dL (6.4-8.2)
[2019-02-17] MEDS: QUEtiapine FUMARATE 100 MG TAB PO SCH ×2 (07:44→22:41)
--- NOTE | 2019-02-17 07:59 | NUR ---
Per pharmacist Diflucan can be crushed.
[2019-02-17 08:35] VITALS: BP 155/58
[2019-02-17] MEDS: ENOXAPARIN SOD 30 MG/0.3 ML SYRINGE SC SCH (09:57)
[2019-02-17] MEDS: FLUCONAZOLE 100 MG TAB PO SCH (09:57)
[2019-02-17] MEDS: SERTRALINE HCL 50 MG TAB PO SCH (09:57)
[2019-02-17] MEDS: FAMOTIDINE (10MG/ML) 2ML VL IV SCH (09:57)
[2019-02-17] MEDS: ASPirin 81 mg TAB PO SCH (09:57)
--- NOTE | 2019-02-17 13:33 | NUR ---
Dr. Menard paged regarding Depakote cannot be crashed, awaiting to call back.
[2019-02-17] MEDS: ACETAMINOPHEN 325 MG TAB PO PRN (13:53)
[2019-02-17] MEDS ORDERED: FLUCONAZOLE 100 MG TAB PO ONE (14:00)
[2019-02-17 14:16] VITALS: BP 111/58
--- NOTE | 2019-02-17 14:30 | NUR ---
Stool for c-diff sent to lab.
[2019-02-17 16:36] VITALS: BP 98/58
[2019-02-17] MEDS: VANCOMYCIN 1GM/250ML 250 ML IV SCH (18:23)
--- NOTE | 2019-02-17 19:20 | NUR ---
Opening Shift Note Received report from Mikayla. Assumed care of patient, awake and alert, but drowsy. Sitter at bedside. No S/S of distress/SOB or pain. Instructed on POC and to call for assist PRN, will continue to monitor for changes Q1hr and PRN. Bed placed in lowest position, bed alarm turned on and call light within reach.
[2019-02-17 20:00] VITALS: BP 139/79
[2019-02-17 21:57] VITALS: BP 139/79
--- NOTE | 2019-02-17 22:00 | NUR ---
NG-TUBE FEEDIN RESIDUAL ASPIRATED. TOLERATING FEEDING WELL. CHANGED POSITION EVERY 2 HRS.CONTINUE CARE. SITTER CONTINUE AT BEDSIDE.
[2019-02-17] MEDS: VALPROIC ACID 250 MG/5 ML ORAL SOLN PO SCH (22:41)
[2019-02-17] MEDS: DONEPEZIL HYDROCHLORIDE 5 MG TAB PO SCH (22:42)
--- NOTE | 2019-02-17 23:00 | NUR ---
Patient had a bowel movement. Marixa area cleansed. Patient tolerated well.
--- NOTE | 2019-02-17 23:00 | NUR ---
Feeding tube line changed and new bottle is placed. Patient is resting in bed and
[2019-02-18 05:00] VITALS: BP 142/82
[2019-02-18] MEDS: PIPERACILLIN-TAZOB 3.375GM 100 ML IV SCH ×3 (06:07→20:29)
[2019-02-18 09:00] VITALS: BP 115/50
--- NOTE | 2019-02-18 09:45 | NUR ---
PER RADIOLOGY VQ SCAN CAN NOT BE DONE DUE TO NG TUBE.
[2019-02-18] MEDS: SERTRALINE HCL 50 MG TAB PO SCH (09:55)
[2019-02-18] MEDS: ASPirin 81 mg TAB PO SCH (09:55)
[2019-02-18] MEDS: ENOXAPARIN SOD 30 MG/0.3 ML SYRINGE SC SCH (09:56)
[2019-02-18] MEDS: VALPROIC ACID 250 MG/5 ML ORAL SOLN PO SCH ×2 (09:56→21:41)
[2019-02-18] MEDS: QUEtiapine FUMARATE 100 MG TAB PO SCH ×2 (09:56→21:42)
[2019-02-18] MEDS: FLUCONAZOLE 100 MG TAB PO SCH (09:56)
[2019-02-18] MEDS: FAMOTIDINE (10MG/ML) 2ML VL IV SCH (09:56)
--- NOTE | 2019-02-18 11:54 | NUR ---
ELIDA FELICIANO REGARDING PLAN OF CARE.
[2019-02-18 13:00] VITALS: BP 116/53
--- NOTE | 2019-02-18 14:15 | NUR ---
RECIEVED CALL FROM Chelsea GRANT. STATED HE WOULD NOT DO ANOTHER PEG TUBE DUE TO RISK OF PATIENT REMOVING TUBE. INFORMED Chelsea FELICIANO AND Chelsea PARIS.
[2019-02-18] MEDS: SODIUM CHLORIDE 0.9% 1,000 ML IV SCH (14:40)
[2019-02-18] MEDS ORDERED: IOHEXOL 350 MG/ML 100ML IJ ONE (16:18)
--- NOTE | 2019-02-18 16:59 | NUR ---
assessment Patient is a 74 year old female who is confused. Per patients daughter Ruth prior to admission patient lived home with her and family and functioned with their assistance. Per Ruth patient is on service with [facility] prior to admission. Per Ruth patient will return home with [facility] on discharge. Patient was admitted for pulling out her peg tube. Per Ruth patient has a caregiver that comes in 4 hours per day and Ruth cares for the patient the rest of the time. Patient has a hospital bed, wheelchair, fww, and bedside commode for home use. Patients SS income is 1,800.00 per month. Per Ruth she prefers for patient to return home with her on discharge. Ruth verbalized understanding and agreed to discharge plan home on hospice. Addendum: 02/18/19 at 1701 by Kayy HOLLINGSWORTH Amended: Links added.
--- NOTE | 2019-02-18 18:10 | NUR ---
CALLED LAB DUE TO UNABLE TO DRAW OUT SUFFICIENT AMOUNT OF BLOOD FROM MIDLINE FOR VANCO TROUGH.
[2019-02-18] MEDS: Jevity 1.2 Cal/Fiber 1 Liter NG SCH (18:38)
--- NOTE | 2019-02-18 19:25 | NUR ---
Opening Shift Note Received report from sal Phillips RN. Assumed care of patient, awake and alert, but drowsy. Sitter at bedside. No S/S of distress/SOB or pain. Instructed on POC and to call for assist PRN, will continue to monitor for changes Q1hr and PRN. Bed placed in lowest position, bed alarm turned on and call light within reach.
[2019-02-18] MEDS: VANCOMYCIN 1GM/250ML 250 ML IV SCH ×2 (21:41→22:00)
[2019-02-18] MEDS: DONEPEZIL HYDROCHLORIDE 5 MG TAB PO SCH (21:42)
[2019-02-18 21:45] VITALS: BP 117/83
[2019-02-19] MEDS: PIPERACILLIN-TAZOB 3.375GM 100 ML IV SCH ×4 (02:23→23:00)
[2019-02-19 05:35] VITALS: BP 137/53
[2019-02-19 09:00] VITALS: BP 99/65
[2019-02-19] MEDS: QUEtiapine FUMARATE 100 MG TAB PO SCH ×2 (09:29→23:01)
[2019-02-19] MEDS: VALPROIC ACID 250 MG/5 ML ORAL SOLN PO SCH ×2 (09:41→23:01)
[2019-02-19] MEDS: SERTRALINE HCL 50 MG TAB PO SCH (09:41)
[2019-02-19] MEDS: ENOXAPARIN SOD 30 MG/0.3 ML SYRINGE SC SCH (09:42)
[2019-02-19] MEDS: FAMOTIDINE (10MG/ML) 2ML VL IV SCH (09:42)
[2019-02-19] MEDS: ASPirin 81 mg TAB PO SCH (09:42)
[2019-02-19] MEDS: SODIUM CHLORIDE 0.9% 1,000 ML IV SCH (09:42)
[2019-02-19] MEDS: FLUCONAZOLE 100 MG TAB PO SCH (09:42)
[2019-02-19 13:00] VITALS: BP 120/83
[2019-02-19 13:29] LABS: BUN/Creatinine Ratio 13.2; Calcium 8.1 mg/dL (8.5-10.1)
[2019-02-19 14:26] LABS: Hematocrit 31.2 % (36.0-46.0); Hemoglobin 10.3 g/dL (12.2-16.2); Mean Corpuscular Hemoglobin 32.7 pg (28.0-32.0); Mean Corpuscular Hgb Conc. 32.9 g/dL (32.0-36.0); Mean Corpuscular Volume 99.5 fL (80.0-100.0); Platelet Count (auto) 277 10^3/uL (140-450); Red Blood Cells 3.14 10^6/uL (4.0-5.20); Red Cell Distribution Width 14.8 % (11.8-14.3); White Blood Cell 9.2 10^3/uL (4.4-10.8)
[2019-02-19 14:30] LABS: Basophils % (manual) 0 (0.0-2.0); Blast Cells 0; Promyelocytes % 0; Reactive Lymphocytes 0
[2019-02-19 14:38] LABS: Band Neutrophils % (manual) 2; Eosinophils % (manual) 9 (0-7); Lymphocytes % (manual) 33 (10.0-50.0); Metamyelocytes % 2; Monocytes % (manual) 18 (0-12); Myelocytes % 3
--- NOTE | 2019-02-19 15:08 | NUR ---
Nutrition Follow up Notes Wt: 69.1 kg Pt`s sleeping with no family by beside. pt is currently NPO on EN feeds with Jevity 1.2 @ 60 ml.hr providing 1728 kcals and 86 gm proteins. pt with adequate EN support as it meets 104-113% kcals and 119-130% proteins. per RN pt tolerating TF well Est. Needs based on BW (66 kg):5041-4125 kcal (23-25 kcal/kgIBW), 66-72 gms pro (1.0-1.1gms/kgBW r/t elev RFT, wounds hypoalb). Will continue to monitor pertinent labs and reassess nutrient need prn. LABS: GLU 121 H, CA 7.6 L, ALB 1.4 L. BS: 13 mod risk scab on sacrum per RN doc BM: pt had 1 BM today per RN doc PES: Altered nutrition related lab values r/t current chronic medical condition aeb elev RFT severe hypoalb hypocalcemia Increased nutrient needs r/t chronic medical condition aeb pt`sNPO with PEG, severe hypoalb wounds Recommendations: 1) consider prostat 1 packet daily as RFT improve. 2) consider MVI/C bid. 3) continue current plan of care
[2019-02-19] MEDS: VANCOMYCIN 1GM/250ML 250 ML IV SCH (17:24)
[2019-02-19 17:27] VITALS: BP 97/53
--- NOTE | 2019-02-19 19:30 | NUR ---
received pt from day rn poc reviewed,
--- NOTE | 2019-02-19 19:45 | NUR ---
pt observed resting with mittens on hob elevated to semi carrion position, ngt feedings going at ordered dose, reoriented pt to surroundings, and poc, sitter at bedside for pts safety
[2019-02-19 21:25] VITALS: BP 175/62
[2019-02-19] MEDS: DONEPEZIL HYDROCHLORIDE 5 MG TAB PO SCH (23:00)
--- NOTE | 2019-02-19 23:00 | NUR ---
pt had large liquid bm, turned and repositioned, will send specimen to lab per protocol
[2019-02-20] MEDS: PIPERACILLIN-TAZOB 3.375GM 100 ML IV SCH ×4 (02:29→20:29)
--- NOTE | 2019-02-20 03:28 | NUR ---
resting with eyes closed resp even and unlabored, turned and repositioned with hob up
[2019-02-20 04:41] VITALS: BP 149/54
[2019-02-20] MEDS: SODIUM CHLORIDE 0.9% 1,000 ML IV SCH (04:59)
--- NOTE | 2019-02-20 05:03 | NUR ---
awoke am care given small liquid bm specimen sent to lab, jabier on both hands, pt is combative when being turned, partial bath and linen change given, feeding tube and tubing changed only 10ml residual, positioned with hob up, aspiration precautions observed, sitter at bedside for pts safety
--- NOTE | 2019-02-20 06:58 | NUR ---
report given to am nurse poc reviewed
--- NOTE | 2019-02-20 07:30 | NUR ---
Opening Shift Note Assumed care of patient. Patient is awake and alert to self only. No S/S of distress/SOB or pain. NG tube to LT nare running Jevity at 60ml/hr. Residual of 10ml. HOB elevated >30 degrees/aspiration precautions maintained. Grullon draining to gravity. Instructed on POC and to call for assist PRN, will continue to monitor. Bed locked in the lowest position. Bed rails up x2. Call light in reach. Sitter at the bedside for safety.
[2019-02-20 09:00] VITALS: BP 140/54
[2019-02-20] MEDS: SERTRALINE HCL 50 MG TAB PO SCH (09:22)
[2019-02-20] MEDS: QUEtiapine FUMARATE 100 MG TAB PO SCH ×2 (09:23→22:21)
[2019-02-20] MEDS: ASPirin 81 mg TAB PO SCH (09:23)
[2019-02-20] MEDS: ENOXAPARIN SOD 30 MG/0.3 ML SYRINGE SC SCH (09:24)
[2019-02-20] MEDS: VALPROIC ACID 250 MG/5 ML ORAL SOLN PO SCH ×2 (09:24→22:21)
[2019-02-20] MEDS: FLUCONAZOLE 100 MG TAB PO SCH (10:00)
--- NOTE | 2019-02-20 10:00 | NUR ---
PATIENT HAD LARGE LIQUID BM. CLEANED PATIENT AND PROVIDED FEMI CARE. Z GUARD CREAM APPLIED TO PERINEUM/SACRUM. COMPLETE LINEN CHANGE.
[2019-02-20] MEDS: FAMOTIDINE (10MG/ML) 2ML VL IV SCH (11:00)
[2019-02-20 12:00] VITALS: BP 118/62
[2019-02-20] MEDS: VANCOMYCIN 1GM/250ML 250 ML IV SCH (12:01)
[2019-02-20 13:00] VITALS: BP 118/62
--- NOTE | 2019-02-20 14:00 | NUR ---
FAMILY AT THE BEDSIDE ALL QUESTIONS AND CONCERNS ADDRESSED AT THIS TIME.
--- NOTE | 2019-02-20 14:30 | NUR ---
AWARE DR. MORAN AWARE THAT PRIMARY RN IS UNABLE TO ADMINISTER DIFLUCAN, CRUSHED, IN NG TUBE AND 1000 DOSE OF DIFLUCAN WAS HELD. PER VIKAS SHARP TO ORDER IV PER PHARMACY. CONTACTED PHARMACIST. PHARMACIST TO INPUT ORDER. Addendum: 02/20/19 at 1852 by Domenica Godoy RN PHARMACIST AWARE OF MEDICATION VANCOMYCIN ADMINISTER TIMES FROM 02/19/19 AND 02/20/19. PHARMACIST TO ADJUST ADMINISTRATION TIMES AND TROUGH TIME.
[2019-02-20] MEDS: FLUCONAZOLE 200MG/100ML 100 ML IV SCH (16:52)
[2019-02-20 16:55] VITALS: BP 112/67
--- NOTE | 2019-02-20 18:52 | NUR ---
CLOSING NOTE Patient is awake and alert to self only, unchanged from previous assessment. No S/S of distress/SOB or pain. NG tube to LT nare running Jevity at 60ml/hr. Residual of 10ml. HOB elevated >30 degrees/aspiration precautions maintained. Grullon draining to gravity. Bed locked in the lowest position. Bed rails up x2. Call light in reach. Sitter at the bedside for safety. Will endorse care to night RN.
[2019-02-20 21:29] VITALS: BP 126/89
[2019-02-20] MEDS: DONEPEZIL HYDROCHLORIDE 5 MG TAB PO SCH (22:20)
[2019-02-20] MEDS: Jevity 1.2 Cal/Fiber 1 Liter NG SCH (22:21)
[2019-02-21] MEDS: SODIUM CHLORIDE 0.9% 1,000 ML IV SCH ×2 (03:09→20:28)
[2019-02-21] MEDS: PIPERACILLIN-TAZOB 3.375GM 100 ML IV SCH ×4 (03:09→20:28)
[2019-02-21 04:42] VITALS: BP 119/75
[2019-02-21] MEDS ORDERED: VANCOMYCIN 1GM/250ML 250 ML IV SCH (06:00)
--- NOTE | 2019-02-21 06:00 | NUR ---
Unable to give Vancomycin 0600 at this time related to pending vancomycin trough result. Will administer antibiotic if trough results within normal limits. If no result at shift change, will endorse to day shift RN.
[2019-02-21 06:56] LABS: Hematocrit 33.1 % (36.0-46.0); Mean Corpuscular Hemoglobin 33.5 pg (28.0-32.0); Mean Corpuscular Hgb Conc. 33.2 g/dL (32.0-36.0); Mean Corpuscular Volume 100.9 fL (80.0-100.0); Platelet Count (auto) 352 10^3/uL (140-450); Red Blood Cells 3.28 10^6/uL (4.0-5.20); Red Cell Distribution Width 15.1 % (11.8-14.3); White Blood Cell 8.4 10^3/uL (4.4-10.8)
[2019-02-21 07:07] LABS: Basophils % (manual) 0 (0.0-2.0); Blast Cells 0; Promyelocytes % 0; Reactive Lymphocytes 0
[2019-02-21 07:13] LABS: BUN/Creatinine Ratio 14.9; Calcium 7.9 mg/dL (8.5-10.1)
--- NOTE | 2019-02-21 07:40 | NUR ---
OPENING SHIFT NOTE: PATIENT AWAKE, ALERT, WITH MINIMAL VERBAL RESPONSE. BREATHING EVEN AND UNLABORED. NG-TUBE TO LEFT NARE, INTACT PATENT WITH FEEDING TUBE RUNNING, INFUSING WELL.VERIFIED PROPER PLACEMENT BY AUSCULTATION, 30 ML OF OUTPUT ASPIRATED. CONTINUE FEEDING. MIDLINE ACCESS ON RIGHT FOREARM PATENT, DRY AND INTACT. AGUIRRE DRAINING WELL BY GRAVITY, NO SIGNS OF DISTRESS NAD DISCOMFORT AT THIS TIME, POSITION PATIENT FOR COMFORT AND ELEVATED HEELS. CALL LIGHT WITHIN REACH AND BED ALARM ON AND IN LOW POSITION. SITTER AT BEDSIDE. WILL CONTINUE TO MONITOR
[2019-02-21 07:52] LABS: Band Neutrophils % (manual) 4; Eosinophils % (manual) 13 (0-7); Lymphocytes % (manual) 28 (10.0-50.0); Metamyelocytes % 2; Monocytes % (manual) 9 (0-12); Myelocytes % 1
[2019-02-21] MEDS: QUEtiapine FUMARATE 100 MG TAB PO SCH ×2 (08:27→20:29)
[2019-02-21] MEDS: FAMOTIDINE (10MG/ML) 2ML VL IV SCH (08:28)
[2019-02-21] MEDS: SERTRALINE HCL 50 MG TAB PO SCH (08:28)
[2019-02-21] MEDS: ASPirin 81 mg TAB PO SCH (08:28)
[2019-02-21] MEDS: ENOXAPARIN SOD 30 MG/0.3 ML SYRINGE SC SCH (08:29)
[2019-02-21 09:00] VITALS: BP 129/73
--- NOTE | 2019-02-21 09:21 | NUR ---
AM CARE: CATHETER CARE WELL MEATAL CARE PERFORMED, BARRIER CREAM APPLIED, PATIENT ATTEMPTING TO HIT STAFF, BUT IS EASILY DE-ESCALATED.
[2019-02-21] MEDS: VALPROIC ACID 250 MG/5 ML ORAL SOLN PO SCH ×2 (10:44→20:28)
--- NOTE | 2019-02-21 11:20 | NUR ---
WOUND CARE NOTE: Wound care in to see patient for skin integrity monitoring. Patient continue resting in bed in Rm. 287A. She's awake but not oriented. Nurse family services assistant at bedside. Patient appears to be in no pain using Peterson Brewer Faces Pain Scale. She needs assistance in turning and repositioning, her current Casa score is 13. Skin assessment done with the assistance of patient's nurse, AMBROSIO Tam. Patient's sacrum continue to display brown hyperpigmented skin and her bilateral heel continue to display thin brown scabs to from old, dry, resolving blisters. Patient is on tube feeding and per nurse's reports, patient having frequent episode of loose stools and developed MASD to perirectal, and groin area. Marixa care given, applied Z Guard cream to sacral,buttocks, perineum per MD order. New photograph of mentioned skin issue are taken for reference. Repositioned patient for comfort facing her Lt. side, redistributed pressure points with pillows. Patient tolerated well. Nurse aide at bedside. RECOMMENDATION: Continuation of all wound care orders prescribed by MD, continue with skin/wound plan of care, continue monitoring by wound care while patient is hospitalized. Addendum: 02/21/19 at 1742 by Kaelyn Gillespie RN Amended: Links added.
[2019-02-21 13:00] VITALS: BP 127/41
[2019-02-21] MEDS: Jevity 1.2 Cal/Fiber 1 Liter NG SCH (14:09)
--- NOTE | 2019-02-21 15:18 | NUR ---
re-assessment I spoke with Shelby from [facility] regarding an RN to meet with Ruth guardado daughter to inform Ruth of hospice and what that entails regarding TPN and Peg tube feedings. Per Shelby RN Joe will set an appointment to meet with Ruth. Waiting for meeting time and date now. Addendum: 02/21/19 at 1520 by Kayy HOLLINGSWORTH Amended: Links added.
--- NOTE | 2019-02-21 16:01 | NUR ---
MD PARIS ROUNDING PER FAMILY REQUEST TO SPEAK WITH MD. THOMPSON DISCUSSED, WILL AWAIT FURTHER ORDERS.
[2019-02-21 17:21] VITALS: BP 122/38
[2019-02-21] MEDS: FLUCONAZOLE 200MG/100ML 100 ML IV SCH (17:26)
--- NOTE | 2019-02-21 19:26 | NUR ---
CARE ENDORSED TO ESTELA VALENTE.
--- NOTE | 2019-02-21 19:30 | NUR ---
Opening Shift Note: A&Ox1; hx of Alzheimer disease; resting in bed. Currently on 2LO2 via NC; does not wear at home; pain level 0/10 Peterson sultana scale; and bedrest. Bed locked in lowest position, call light within reach, side rails up x2, and sitter present at bedside for patient safety. IV RUE midline running NS at 50 ml/hr inserted on 02/15/19. Grullon inserted on 02/13/19 for prolonged immobilization. NG to left nare running Jevity 1.2 at 60 ml/hr; residual is 10 ml. Skin: steri strips present in medial abdomen for previous PEG tube wound; MASD to perianal/groin area r/t incontinence of stool; DTI to heels LUIS. Patient is DNR; order is in EMR. Will continue to round and reposition prn.
[2019-02-21] MEDS: DONEPEZIL HYDROCHLORIDE 5 MG TAB PO SCH (20:28)
[2019-02-21 22:00] VITALS: BP 126/51
[2019-02-22] MEDS ORDERED: VANCOMYCIN 1GM/250ML 250 ML IV SCH
[2019-02-22] MEDS: PIPERACILLIN-TAZOB 3.375GM 100 ML IV SCH ×3 (02:00→14:00)
[2019-02-22 05:55] VITALS: BP 120/41
[2019-02-22 09:00] VITALS: BP 123/49
[2019-02-22] MEDS: QUEtiapine FUMARATE 100 MG TAB PO SCH (09:40)
[2019-02-22] MEDS: VALPROIC ACID 250 MG/5 ML ORAL SOLN PO SCH (10:30)
[2019-02-22] MEDS: ENOXAPARIN SOD 30 MG/0.3 ML SYRINGE SC SCH (10:30)
[2019-02-22] MEDS: ASPirin 81 mg TAB PO SCH (10:30)
[2019-02-22] MEDS: SERTRALINE HCL 50 MG TAB PO SCH (10:30)
[2019-02-22] MEDS: FAMOTIDINE (10MG/ML) 2ML VL IV SCH (10:30)
[2019-02-22 14:18] VITALS: BP 127/78
[2019-02-22] MEDS ORDERED: ALBUTEROL SULF 2.5 MG/0.5ML(0.5%) NEB SOLN NEB PRN (14:45)
[2019-02-22] MEDS ORDERED: FLUC200T50 GT (14:50)
--- NOTE | 2019-02-22 15:31 | NUR ---
D/C planning Per consult to resume service with hospice. Contact [facility] Ph:( [phone]) fax:) faxed medical records. Per Stacey orders have been received and service to start upon d/. Transportation has been arrange with [facility] ph:( [phone]) fruit or nut picker time between 16:00-17:00 via gurney with oxygen. Informed AMBROSIO Gomez. Addendum: 02/22/19 at 1533 by LUIS DANIEL MUNSON Amended: Links added.
[2019-02-22 16:16] VITALS: BP 127/78
--- NOTE | 2019-02-22 16:46 | NUR ---
PT DC TO HOME VIA GURNEY TRANSPORT. NG TUBE FLUSHED. PICC LINE TO RT UPPER ARM FLUSHED. INDWELLING AGUIRRE CATH IN PLACE. PRESENT IS PT'S DAUGHTER.
--- NOTE | 2019-02-22 16:48 | NUR ---
COPY OF POLST GIVEN TO TRANSPORT STAFF. RING BINDER FROM [facility] PROVIDED TO PT'S DAUGHTER.
== END 2019-02-22 16:40 | disposition hospice, home (50) | DRG 871 ==
LOC: EDBD 02:44 → ER 02:46 → TELE 02:47 → TELE-WESTW 11:56
PROVIDERS: ADMIT Hospitalist; ATTEND Internal Medicine Nephrology
DX: A41.9 Sepsis, unspecified organism (principal); J69.0 Pneumonitis due to inhalation of food and vomit; E43 Unspecified severe protein-calorie malnutrition; R53.2 Functional quadriplegia; J96.01 Acute respiratory failure with hypoxia; G92 Toxic encephalopathy; N39.0 Urinary tract infection, site not specified; K94.23 Gastrostomy malfunction; R65.20 Severe sepsis without septic shock; R62.7 Adult failure to thrive; F32.9 Major depressive disorder, single episode, unspecified; N18.3 Chronic kidney disease, stage 3 (moderate); G30.9 Alzheimer's disease, unspecified; D64.9 Anemia, unspecified; Z68.28 Body mass index [BMI] 28.0-28.9, adult; F02.80 Dementia in other diseases classified elsewhere, unspecified severity, without behavioral disturbance, psychotic disturbance, mood disturbance, and anxiety; F17.210 Nicotine dependence, cigarettes, uncomplicated; J44.9 Chronic obstructive pulmonary disease, unspecified; I12.9 Hypertensive chronic kidney disease with stage 1 through stage 4 chronic kidney disease, or unspecified chronic kidney disease; Z51.5 Encounter for palliative care; Z66 Do not resuscitate; Y83.8 Other surgical procedures as the cause of abnormal reaction of the patient, or of later complication, without mention of misadventure at the time of the procedure; E87.6 Hypokalemia; Z78.1 Physical restraint status; Z86.73 Personal history of transient ischemic attack (TIA), and cerebral infarction without residual deficits
CPT/HCPCS: 36415; 36600; 71045; 71275; 80048; 80053; 80202; 81001; 82550; 82805; 83605; 83880; 84484; 85007; 85025; 85027; 85379; 85384; 85610; 85730; 87040; 87077; 87081; 87086; 87088; 87186; 87493; 93005; 93970; 96365; 96375; G0378; J1450; J2543; J3490; J7042; J7060

== ENCOUNTER → 2020-07-17 | Outpatient (CLI) | payer OTHER ==
[~2020-07-17] MED LIST changes: -ASPI81CH4 PO; +ASPI81CH74 PO; +DIVA500T2 PO; -DIVA500T53 PO; -DONE10TA17 PO; +DONE10TA5 PO; +FLUC200T50 GT; -IBUP100S11 PO; -QUET300T14 PO
[2020-07-17 12:57] LABS: Urine Bacteria MANY /hpf (None Seen); Urine Blood 3+ /uL (Negative); Urine Mucus FEW (None Seen); Urine Specific Gravity 1.009 (1.001-1.035); Urine WBC 368 /hpf (0 - 5); Urine WBC Clumps PRESENT /hpf (None Seen)
== END | disposition home or self-care (01) ==
LOC: LAB 12:31
PROVIDERS: ATTEND Internal Medicine
DX: Z87.440 Personal history of urinary (tract) infections (principal)
CPT/HCPCS: 81001; 87086; 87088; 87186

== ENCOUNTER → 2021-12-06 | Outpatient (CLI) | payer OTHER ==
[~2021-12-06] MED LIST changes: -BISA-4 PO; +BISA-65 PO
[2021-12-06 13:57] LABS: Urine Bacteria FEW /hpf (None Seen); Urine Blood 2+ /uL (Negative); Urine Mucus FEW (None Seen); Urine WBC 7 /hpf (0 - 5)
== END | disposition home or self-care (01) ==
LOC: LAB 13:33
PROVIDERS: ATTEND Internal Medicine
DX: N39.0 Urinary tract infection, site not specified (principal)
CPT/HCPCS: 81001; 87086